=== PATIENT | female | born 1945 | race African-American/Black ===

== ENCOUNTER 2018-02-04 00:18 | Inpatient (IN) | payer BC, OTHER ==
[~2018-02-04] VITALS: Ht 165.1 cm; Wt 54.4 kg
[2018-02-04 00:25] VITALS: BP 152/90
[2018-02-04] MEDS ORDERED: LATANOPROST 0.7.5 ML OP (00:36)
[2018-02-04] MEDS ORDERED: ADALAT CC30 MG ORAL (00:36)
[2018-02-04] MEDS ORDERED: TRUSOPT10 ML BOTH EYES (00:36)
[2018-02-04] MEDS ORDERED: ATORVASTATIN CA20 MG ORAL (00:36)
[2018-02-04] MEDS ORDERED: Sodium Chloride 500ML 500 ML IV ONE (00:41)
[2018-02-04] MEDS ORDERED: Albuterol ud Inhalation HHN ONE (00:45)
[2018-02-04] MEDS ORDERED: Ipratropium 0.02% Inh Soln 2.5ml UD HHN ONE (00:45)
--- NOTE | 2018-02-04 00:47 | Emergency Room Report ---
History of Present Illness General Chief Complaint: Dyspnea/Respdistress Source: Patient Present Illness HPI Patient present with complaints of shortness of breath and congestion She reports that about one month ago she was seen at another facility Workup at that facility did not reveal any findings she was given an albuterol inhaler Patient reports that she does not have any previous history of asthma or lung disease Denies any smoking Currently denies any chest pain She feels that laying flat is worsening her respiration Denies any swelling Also describes some exertional dyspnea Allergies: Coded Allergies: SHELLFISH DERIVED (Verified Allergy, Unknown, 02/04/18) Patient History Past Medical History: see triage record Pertinent Family History: none Last Menstrual Period: n/a Reviewed Nursing Documentation: PMH: Agreed; PSxH: Agreed Nursing Documentation-PMH Hx Hypertension: Yes Review of Systems All Other Systems: negative except mentioned in HPI Physical Exam Vital Signs Date Time Temp Pulse Resp B/P (MAP) Pulse Ox O2 Delivery O2 Flow Rate FiO2 02/04/18 00:23 97.5 88 22 150/94 89 Room Air Sp02 EP Interpretation: reviewed, abnormal - Low percentage, on 2 L nasal cannula pt is 95% which is normal General Appearance: well appearing, no apparent distress Head: normocephalic, atraumatic Eyes: bilateral eye PERRL, bilateral eye EOMI ENT: hearing grossly normal, normal pharynx, TMs + canals normal, uvula midline Neck: full range of motion, supple, no meningismus, no bony tend Respiratory: no respiratory distress, no retraction, no accessory muscle use, wheezing - Bilaterally Cardiovascular #1: normal peripheral pulses, regular rate, rhythm, no edema, no gallop, no JVD, no murmur Gastrointestinal: normal bowel sounds, non tender, soft, no mass, no organomegaly, non-distended, no guarding, no hernia, no pulsatile mass, no rebound Genitourinary: no CVA tenderness Musculoskeletal: normal inspection Neurologic: oriented x3, responsive, 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 III-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 nml as tested, motor strength/ tone normal, sensory intact Psychiatric: mood/affect normal Skin: normal color, no rash, warm/dry, palpation normal Lymphatic: normal inspection, no adenopathy Medical Decision Making Diagnostic Impression: Primary Impression: Dyspnea ER Course Patient is a fairly complex patient with multiple differential to consideration including but not limited to cardiac cardiopulmonary and vascular emergencies Patient required initial breathing treatment and oxygenation Presented initially hypoxic X-ray shows some increased markings in the right side of the lung Given the patient's history and comorbidities patient was provided with antibiotics and admitted for further care Labs Test 02/04/18 01:00 02/04/18 09:00 White Blood Count 6.9 K/UL (4.8-10.8) Red Blood Count 4.75 M/UL (4.20-5.40) Hemoglobin 14.2 G/DL (12.0-16.0) Hematocrit 41.6 % (37.0-47.0) Mean Corpuscular Volume 88 FL (80-99) Mean Corpuscular Hemoglobin 29.9 PG (27.0-31.0) Mean Corpuscular Hemoglobin Concent 34.1 G/DL (32.0-36.0) Red Cell Distribution Width 11.4 % (11.6-14.8) Platelet Count 198 K/UL (150-450) Mean Platelet Volume 8.0 FL (6.5-10.1) Neutrophils (%) (Auto) 68.9 % (45.0-75.0) Lymphocytes (%) (Auto) 18.1 % (20.0-45.0) Monocytes (%) (Auto) 6.8 % (1.0-10.0) Eosinophils (%) (Auto) 4.9 % (0.0-3.0) Basophils (%) (Auto) 1.2 % (0.0-2.0) Sodium Level 137 MMOL/L (136-145) Potassium Level 4.4 MMOL/L (3.5-5.1) Chloride Level 102 MMOL/L (98-107) Carbon Dioxide Level 25 MMOL/L (21-32) Anion Gap 10 mmol/L (5-15) Blood Urea Nitrogen 19 mg/dL (7-18) Creatinine 0.9 MG/DL (0.55-1.30) Estimat Glomerular Filtration Rate mL/min (>60) Glucose Level 95 MG/DL (74-106) Calcium Level 9.4 MG/DL (8.5-10.1) Total Bilirubin 0.4 MG/DL (0.2-1.0) Aspartate Amino Transf (AST/SGOT) 32 U/L (15-37) Alanine Aminotransferase (ALT/SGPT) 19 U/L (12-78) Alkaline Phosphatase 94 U/L (46-116) Total Creatine Kinase 244 U/L (26-308) Creatine Kinase MB 1.7 NG/ML (0.0-3.6) Creatine Kinase MB Relative Index 0.6 Troponin I 0.000 ng/mL (0.000-0.056) 0.000 ng/mL (0.000-0.056) Pro-B-Type Natriuretic Peptide 38 pg/mL (0-125) 67 pg/mL (0-125) Total Protein 9.3 G/DL (6.4-8.2) Albumin 4.1 G/DL (3.4-5.0) Globulin 5.2 g/dL Albumin/Globulin Ratio 0.8 (1.0-2.7) Lipase 177 U/L (73-393) Hemoglobin A1c 5.9 % (4.3-6.0) Triglycerides Level 16 MG/DL (30-150) Cholesterol Level 141 MG/DL (< 200) LDL Cholesterol 43 mg/dL (<100) HDL Cholesterol 95 MG/DL (40-60) Cholesterol/HDL Ratio 1.5 (3.3-4.4) Rhythm Strip Diag. Results EP Interpretation: yes Rate: 78 Rhythm: NSR, no PVC's, no ectopy Chest X-Ray Diagnostic Results Chest X-Ray Diagnostic Results : Chest X-Ray Ordered: Yes # of Views/Limited/Complete: 1 View Indication: Shortness of Breath EP Interpretation: Yes Interpretation: no effusion, no pneumothorax, other - right lower lobe increased marking Impression: Other - right lower lobe increased marking, atelectasis versus other Last Vital Signs Date Time Temp Pulse Resp B/P (MAP) Pulse Ox O2 Delivery O2 Flow Rate FiO2 02/04/18 00:23 97.5 88 22 150/94 89 Room Air Status: improved Disposition: ADMITTED INPATIENT Condition: Serious BandarMarita kramer Feb 04, 2018 00:47
[2018-02-04 01:12] LABS: BASOPHILS % (AUTO) 1.2 % (0.0-2.0); EOSINOPHILS % (AUTO) 4.9 % (0.0-3.0); HEMATOCRIT 41.6 % (37.0-47.0); HEMOGLOBIN 14.2 G/DL (12.0-16.0); LYMPHOCYTES % (AUTO) 18.1 % (20.0-45.0); MEAN CORPUSCULAR VOLUME 88 FL (80-99); MONOCYTES % (AUTO) 6.8 % (1.0-10.0); NEUTROPHILS % (AUTO) 68.9 % (45.0-75.0); PLATELET COUNT 198 K/UL (150-450); RED BLOOD COUNT 4.75 M/UL (4.20-5.40); RED CELL DISTRIBUTION WIDTH 11.4 % (11.6-14.8); WHITE BLOOD COUNT 6.9 K/UL (4.8-10.8)
[2018-02-04 01:25] LABS: ANION GAP 10 mmol/L (5-15); BLOOD UREA NITROGEN 19 mg/dL (7-18); CALCIUM 9.4 MG/DL (8.5-10.1); CARBON DIOXIDE 25 MMOL/L (21-32); CHLORIDE 102 MMOL/L (98-107); CREATININE 0.9 MG/DL (0.55-1.30); POTASSIUM 4.4 MMOL/L (3.5-5.1); SODIUM 137 MMOL/L (136-145)
[2018-02-04 01:38] LABS: ALANINE AMINOTRANSFERASE 19 U/L (12-78); ALBUMIN 4.1 G/DL (3.4-5.0); ALBUMIN/GLOBULIN RATIO 0.8 (1.0-2.7); ALKALINE PHOSPHATASE 94 U/L (46-116); ASPARTATE AMINO TRANSFERASE 32 U/L (15-37); BILIRUBIN,TOTAL 0.4 MG/DL (0.2-1.0); CKMB 1.7 NG/ML (0.0-3.6); CREATINE KINASE 244 U/L (26-308)
[2018-02-04] MEDS ORDERED: DiphenhydrAMINE 25mg/10ml Elixir ORAL ONE (01:45)
[2018-02-04 03:00] VITALS: BP 121/72
[2018-02-04] MEDS ORDERED: Albuterol/Ipratropium 3ml neb HHN PRN (06:45)
[2018-02-04] MEDS: Albuterol/Ipratropium 3ml neb HHN SCH ×5 (07:51→23:00)
[2018-02-04 08:00] VITALS: BP 134/79
--- NOTE | 2018-02-04 08:30 | History & Physical ---
History and Physical History & Physicial seen and examined. Full Dictation completed Alis Levy MD Feb 04, 2018 08:30
[2018-02-04] MEDS ORDERED: Pneumococcal Vaccine 25mcg/0.5ml IM ONE (09:00)
[2018-02-04] MEDS: Dorzolamide 2% 10ml Btl BOTH EYES SCH ×2 (09:18→17:07)
[2018-02-04] MEDS: Enoxaparin 40mg Inj SUBQ SCH (09:19)
--- NOTE | 2018-02-04 09:38 | Diagnostic Imaging Report ---
Indication: Shortness of breath Technique: One view of the chest Comparison: 03/04/2009 Findings: Lungs and pleural spaces are clear. Heart size is normal. No significant interim change Impression: No acute process
[2018-02-04 09:48] LABS: CHOLESTEROL 141 MG/DL (< 200); HDL CHOLESTEROL 95 MG/DL (40-60); TRIGLYCERIDES 16 MG/DL (30-150)
--- NOTE | 2018-02-04 11:24 | Consultation ---
History of Present Illness General Date patient seen: Feb 04, 2018 Time patient seen: 11:16 Chief Complaint: Dyspnea/Respdistress Referring physician: Alis Levy MD Reason for Consultation: Respiratory illness Present Illness HPI 72 F H lifelong non-smoker h/o HL initially had a respiratory infection with cough, congestion, wheezing, sinus congestion. She was seen @ an OSH and given an inhaler. Her Sx's improved somewhat but then got worse over the course of the past few days. + cough + congestion + wheezing + SOB no F/C no CP no NVDC no urinary complaints. + OTC mucinex with some relief Works at [employer], has 2 grown children that live nearby Lives alone, no pets Allergies: Coded Allergies: SHELLFISH DERIVED (Verified Allergy, Unknown, 02/04/18) Medication History Scheduled Atorvastatin Calcium* (Atorvastatin Calcium*), 20 MG ORAL BEDTIME, (Reported) Dorzolamide Hcl* (Trusopt*), 1 DROP BOTH EYES TID, (Reported) Nifedipine Er* (Adalat Cc*), 30 MG ORAL DAILY, (Reported) Miscellaneous Medications Latanoprost/Pf (Latanoprost 0.005% Eye Drop), 7.5 ML OP, (Reported) Medications Narrative Active Scripts Medications Dose Route/Sig Max Daily Dose Days Date Category Dose Instructions Atorvastatin Calcium* (Atorvastatin Calcium) 20 Mg Tablet 20 Mg ORAL BEDTIME 02/04/18 Reported Adalat Cc* (Nifedipine) 30 Mg Tablet.er 30 Mg ORAL DAILY 02/04/18 Reported Do not chew or crush tablet Trusopt* (Dorzolamide HCl) 10 Ml Drops 1 Drop BOTH EYES TID 02/04/18 Reported Latanoprost 0.005% Eye Drop (Latanoprost/Pf) 7.5 Ml Drops 7.5 Ml OP 02/04/18 Reported Patient History History Provided By: Patient Healthcare decision maker Juan Antonio Edge (son) Resuscitation status Full Code Advanced Directive on File No Past Medical/Surgical History Past Medical/Surgical History: (1) Rectal prolapse (2) Hyperlipemia Review of Systems All Other Systems: negative except mentioned in HPI Physical Exam General Appearance: WD/WN, no apparent distress Lines, tubes and drains: peripheral HEENT: normocephalic, atraumatic, anicteric, mucous membranes moist, PERRL Neck: non-tender, normal alignment, supple, normal inspection Respiratory/Chest: chest wall non-tender, lungs clear, normal breath sounds, no respiratory distress, no accessory muscle use, respiratory distress Cardiovascular/Chest: normal peripheral pulses, normal rate, regular rhythm Abdomen: normal bowel sounds, non tender, soft, no organomegaly, no mass Extremities: other - no CCE Last 24 Hour Vital Signs Date Time Temp Pulse Resp B/P (MAP) Pulse Ox O2 Delivery O2 Flow Rate FiO2 02/04/18 09:18 80 134/79 02/04/18 09:00 Nasal Cannula 2.0 02/04/18 08:00 96 02/04/18 08:00 97.7 80 20 134/79 (97) 99 02/04/18 04:18 Nasal Cannula 2.0 02/04/18 04:00 68 02/04/18 03:00 97.1 77 19 121/72 (88) 94 02/04/18 02:55 97.8 83 18 142/89 100 Nasal Cannula 2.0 28 02/04/18 01:02 82 18 100 Nasal Cannula 2.0 28 02/04/18 00:47 83 14 96 Nasal Cannula 2.0 28 02/04/18 00:45 83 14 Nasal Cannula 2.0 28 02/04/18 00:25 97.8 85 22 152/90 88 Room Air 02/04/18 00:25 85 22 Simple Mask 4.0 02/04/18 00:23 97.5 88 22 150/94 89 Room Air Intake and Output 02/03/18 02/04/18 18:59 06:59 Intake Total 650 ml Balance 650 ml IV Total 650 ml Other 0 ml # Voids 2 Laboratory Tests Test 02/04/18 01:00 02/04/18 09:00 White Blood Count 6.9 K/UL (4.8-10.8) Red Blood Count 4.75 M/UL (4.20-5.40) Hemoglobin 14.2 G/DL (12.0-16.0) Hematocrit 41.6 % (37.0-47.0) Mean Corpuscular Volume 88 FL (80-99) Mean Corpuscular Hemoglobin 29.9 PG (27.0-31.0) Mean Corpuscular Hemoglobin Concent 34.1 G/DL (32.0-36.0) Red Cell Distribution Width 11.4 % (11.6-14.8) L Platelet Count 198 K/UL (150-450) Mean Platelet Volume 8.0 FL (6.5-10.1) Neutrophils (%) (Auto) 68.9 % (45.0-75.0) Lymphocytes (%) (Auto) 18.1 % (20.0-45.0) L Monocytes (%) (Auto) 6.8 % (1.0-10.0) Eosinophils (%) (Auto) 4.9 % (0.0-3.0) H Basophils (%) (Auto) 1.2 % (0.0-2.0) Sodium Level 137 MMOL/L (136-145) Potassium Level 4.4 MMOL/L (3.5-5.1) Chloride Level 102 MMOL/L (98-107) Carbon Dioxide Level 25 MMOL/L (21-32) Anion Gap 10 mmol/L (5-15) Blood Urea Nitrogen 19 mg/dL (7-18) H Creatinine 0.9 MG/DL (0.55-1.30) Estimat Glomerular Filtration Rate mL/min (>60) Glucose Level 95 MG/DL (74-106) Calcium Level 9.4 MG/DL (8.5-10.1) Total Bilirubin 0.4 MG/DL (0.2-1.0) Aspartate Amino Transf (AST/SGOT) 32 U/L (15-37) Alanine Aminotransferase (ALT/SGPT) 19 U/L (12-78) Alkaline Phosphatase 94 U/L (46-116) Total Creatine Kinase 244 U/L (26-308) Creatine Kinase MB 1.7 NG/ML (0.0-3.6) Creatine Kinase MB Relative Index 0.6 Troponin I 0.000 ng/mL (0.000-0.056) 0.000 ng/mL (0.000-0.056) Pro-B-Type Natriuretic Peptide 38 pg/mL (0-125) 67 pg/mL (0-125) Total Protein 9.3 G/DL (6.4-8.2) H Albumin 4.1 G/DL (3.4-5.0) Globulin 5.2 g/dL Albumin/Globulin Ratio 0.8 (1.0-2.7) L Lipase 177 U/L (73-393) Hemoglobin A1c 5.9 % (4.3-6.0) Triglycerides Level 16 MG/DL (30-150) L Cholesterol Level 141 MG/DL (< 200) LDL Cholesterol 43 mg/dL (<100) HDL Cholesterol 95 MG/DL (40-60) H Cholesterol/HDL Ratio 1.5 (3.3-4.4) L Microbiology Date/Time Source Procedure Growth Status 02/04/18 01:14 Nasal Nares Influenza Types A,B Antigen (MOE) - Final Complete Height (Feet): 5 Height (Inches): 5.00 Weight (Pounds): 120 Medications Current Medications Medications (Trade) Dose Ordered Sig/Pamela Route PRN Reason Start Time Stop Time Status Last Admin Dose Admin Acetaminophen (Tylenol) 650 mg Q6H PRN ORAL Mild Pain/Temp > 100.5 02/04/18 06:45 03/06/18 06:44 Albuterol/ Ipratropium (Albuterol/ Ipratropium) 3 ml Q3HRT PRN HHN Shortness of Breath 02/04/18 06:45 02/09/18 06:44 Albuterol/ Ipratropium (Albuterol/ Ipratropium) 3 ml Q4HRT HHN 02/04/18 07:00 02/09/18 06:59 02/04/18 07:51 Atorvastatin Calcium (Lipitor) 20 mg BEDTIME ORAL 02/04/18 21:00 03/06/18 20:59 Dorzolamide HCl (Trusopt) 1 drop BID BOTH EYES 02/04/18 09:00 03/06/18 08:59 02/04/18 09:18 Enoxaparin Sodium (Lovenox) 40 mg DAILY SUBQ 02/04/18 09:00 03/06/18 08:59 02/04/18 09:19 Latanoprost (Xalatan) 1 drop BEDTIME BOTH EYES 02/04/18 21:00 03/06/18 20:59 Levofloxacin 150 ml @ 100 mls/hr Q48H IVPB 02/06/18 01:00 02/13/18 00:59 Nifedipine (Procardia XL) 30 mg DAILY ORAL 02/04/18 09:00 03/06/18 08:59 02/04/18 09:18 Pantoprazole (Protonix) 40 mg DAILY ORAL 02/04/18 09:00 03/06/18 08:59 02/04/18 09:18 Assessment/Plan Problem List: (1) Non-smoker ICD Codes: Z78.9 - Other specified health status SNOMED: 1076460 (2) Post-viral reactive airway disease ICD Codes: J45.998 - Other asthma SNOMED: 131163301, 072112185412 (3) Sinusitis ICD Codes: J32.9 - Chronic sinusitis, unspecified SNOMED: 75538319 (4) Tracheobronchitis ICD Codes: J40 - Bronchitis, not specified as acute or chronic SNOMED: 46522818 Assessment/Plan Cough and congestion, URI/tracheobronchitis Prolonged post-viral course Reactive airway disease Sinusitis PLAN: Continue Levaquin (D2) F/U Cx's Mucinex PRN Robitussin RTC and PRN HHN's CT sinus and chest DVT Px: Juan Arreguin MD Feb 04, 2018 11:24
[2018-02-04 11:57] VITALS: BP 144/85
[2018-02-04 16:00] VITALS: BP 131/75
--- NOTE | 2018-02-04 16:14 | Diagnostic Imaging Report ---
Clinical Indication: Shortness of breath, respiratory infection, wheezing, sinus congestion Technique: Spiral acquisitions obtained through the chest. No IV contrast utilized, referring physician request. Multiplanar reconstructions generated. Total dose length product 397.25 mGycm. CTDIvol(s) 11.85 mGy. Dose reduction achieved using automated exposure control Comparison: No comparison CTs. Reference made to chest radiograph of earlier the same day Findings:Irregular opacity with central calcification measuring 8 mm diameter is seen in the posterior right upper lobe, image 22 series 5. A few subpleural opacities are seen in the posterior upper lobes bilaterally. Lungs are otherwise clear.. No infiltrates, effusions, congestion, or masses. Interval scarring and/or atelectasis is seen at both lung bases. The heart size is normal. No pericardial effusion. No mediastinal or hilar mass or adenopathy. Unremarkable esophagus. Normal caliber thoracic aorta and pulmonary arteries. The included portions of the thyroid are unremarkable. No axillary or chest wall mass or adenopathy. The bones are unremarkable. The included upper abdominal anatomy demonstrates multiple hepatic cysts. There are one or more subcentimeter low-attenuation hepatic lesions which are too small to characterize. A calcified granuloma is seen in the right hepatic lobe. Impression: Irregular 8 mm opacity with central calcification in the posterior right upper lobe. Most likely postinflammatory in nature. Recommend follow-up CT in 6-12 months No acute abnormality Minimal basilar scarring and/or atelectasis. Otherwise clear lungs Incidental finding of hepatic cysts. Subcentimeter low-attenuation liver lesions are too small to characterize, most likely benign simple cysts. No further follow-up necessary Old granulomatous disease within the right hepatic lobe The CT scanner at [facility] is accredited by the [employer] and the scans are performed using protocols designed to limit radiation exposure to as low as reasonably achievable to attain images of sufficient resolution adequate for diagnostic evaluation.
--- NOTE | 2018-02-04 16:22 | Diagnostic Imaging Report ---
Indications: Cough, congestion, wheezing, sinus congestion Technique: Spiral images obtained through the maxillofacial sinuses. No IV contrast utilized per protocol. Multiplanar reconstructions were generated.Total dose length product 535 mGycm. CTDIvol(s) 20 mGy. Dose reduction achieved using automated exposure control Comparison: none Findings: There is minimal circumferential mucosal thickening involving the bilateral maxillary sinuses. There is considerable mucosal thickening within the nasal fossa. The bilateral maxillary ostia may be occluded by nasal mucosal thickening. There is more extensive mucosal thickening and opacification of bilateral ethmoid air cells. There is minimal mucosal thickening involving the sphenoid sinuses. There is complete or near complete opacification of the right and central frontal sinuses. There is rightward nasal septal deviation, mild. The optic globes and orbits are unremarkable. The included intracranial structures are unremarkable. The deep facial soft tissues are unremarkable. There is evidence of multiple prior tooth extractions. The existing dentition appears intact. There are degenerative changes of the imaged portions of the cervical spine Impression: Sinonasal disease involving the ethmoid and frontal sinuses, and to a much lesser extent the sphenoid and maxillary sinuses. There is also considerable mucosal thickening within the nasal fossa Suspect occlusions of the bilateral maxillary ostia The CT scanner at [facility] is accredited by the [employer] and the scans are performed using protocols designed to limit radiation exposure to as low as reasonably achievable to attain images of sufficient resolution adequate for diagnostic evaluation.
--- NOTE | 2018-02-04 16:45 | History and Physical Report ---
DATE OF ADMISSION: 02/04/2018 SOURCE OF INFORMATION: Patient and EMR. HISTORY OF PRESENT ILLNESS: The patient is a pleasant 72-year-old female with the recent history of the colon and partial colectomy secondary to the prolapse about couple months ago, who presented with shortness of breath and productive cough for the last couple of days. At the time of evaluation, the patient denies any chest pain. Denies any swelling on the legs. No headaches. No abnormal bleeding reported. PAST MEDICAL HISTORY: Hypertension, otherwise unremarkable. PAST SURGICAL HISTORY: Partial colectomy secondary to the colon prolapse in 2018. MEDICATIONS: Current hospital medications including, but not limited to Levaquin, breathing treatments, and atorvastatin. ALLERGIES: Shellfish. SOCIAL HISTORY: The patient is . Has two children. Denies history of illicit drug abuse, smoking, or alcohol abuse. PHYSICAL EXAMINATION: VITAL SIGNS: Blood pressure 150/90, temperature 98.2, pulse ox 98 percent on room air, pulse rate 98% on 4 liters of oxygen, and respiratory rate 14. HEAD AND NECK: Atraumatic and normocephalic. CHEST: Diffuse bronchial breathing sounds. Positive for crackles. HEART: S1, S2. Regular rate and rhythm. No S3. No S4. ABDOMEN: Soft. Positive for the scars of prior surgery. Well-healed. NEUROLOGY: The patient is awake, alert, and oriented x3. MUSCULOSKELETAL: No gross focal motor or lateralized deficit. LABORATORY DATA: Labs dated 02/04/2018 shows WBC 6.9, hemoglobin 14.2, and platelet count of 198,000. Sodium 137, potassium 4.4, BUN of 19, and creatinine of 0.9. Chest x-ray, official report is pending. ASSESSMENT AND PLAN: 1. Hypoxemic respiratory distress. 2. Community-acquired pneumonia. 3. Hypertension. 4. History of colon prolapse status post surgery. 5. Gastrointestinal and deep vein thrombosis prophylaxis. PLAN OF CARE: I will continue with the IV antibiotic. Resume the blood pressure medications. We will consult Cardiology, Dr. Del Valle and Pulmonary, Dr. Arreguin, and Infectious Disease, Dr. Cantrell. COMMENTS: The time of this dictation doesn't reflect actual time of the encounter Alis Levy M.D. DR: [place] JOB#: [id number] CC: JALYN
[2018-02-04] MEDS: guaiFENesin ER 600mg tab ORAL SCH (17:07)
[2018-02-04] MEDS: Flonase Nasal Inhaler 16gm NASAL SCH (18:53)
[2018-02-04 20:00] VITALS: BP 143/78
[2018-02-04] MEDS: Latanoprost 0.005% Opth 2.5ml Soln BOTH EYES SCH (21:51)
[2018-02-05] VITALS: BP 115/76
[2018-02-05] MEDS: Albuterol/Ipratropium 3ml neb HHN SCH ×4 (03:49→15:21)
[2018-02-05 03:58] VITALS: BP 136/79
[2018-02-05 05:49] LABS: HEMATOCRIT 34.7 % (37.0-47.0); HEMOGLOBIN 11.7 G/DL (12.0-16.0); MEAN CORPUSCULAR VOLUME 89 FL (80-99); PLATELET COUNT 167 K/UL (150-450); RED BLOOD COUNT 3.92 M/UL (4.20-5.40); RED CELL DISTRIBUTION WIDTH 11.4 % (11.6-14.8); WHITE BLOOD COUNT 3.4 K/UL (4.8-10.8)
[2018-02-05 06:11] LABS: ALANINE AMINOTRANSFERASE 17 U/L (12-78); ALBUMIN 3.4 G/DL (3.4-5.0); ALBUMIN/GLOBULIN RATIO 0.9 (1.0-2.7); ALKALINE PHOSPHATASE 76 U/L (46-116); ANION GAP 8 mmol/L (5-15); ASPARTATE AMINO TRANSFERASE 20 U/L (15-37); BILIRUBIN,TOTAL 0.4 MG/DL (0.2-1.0); BLOOD UREA NITROGEN 18 mg/dL (7-18); CALCIUM 8.9 MG/DL (8.5-10.1); CARBON DIOXIDE 27 MMOL/L (21-32); CHLORIDE 105 MMOL/L (98-107); CREATININE 1.2 MG/DL (0.55-1.30); POTASSIUM 3.7 MMOL/L (3.5-5.1); SODIUM 140 MMOL/L (136-145)
[2018-02-05 08:00] VITALS: BP 144/81
[2018-02-05] MEDS: Flonase Nasal Inhaler 16gm NASAL SCH (09:30)
[2018-02-05] MEDS: Latanoprost 0.005% Opth 2.5ml Soln BOTH EYES SCH (09:30)
[2018-02-05] MEDS: Enoxaparin 40mg Inj SUBQ SCH (09:31)
[2018-02-05] MEDS: guaiFENesin ER 600mg tab ORAL SCH (09:32)
[2018-02-05] MEDS: Dorzolamide 2% 10ml Btl BOTH EYES SCH (09:33)
--- NOTE | 2018-02-05 11:20 | General Progress Note ---
Assessment/Plan Assessment/Plan S:I have little sob O: appears comfortable, complains of exertional sob PHYSICAL EXAMINATION: HEAD AND NECK: Atraumatic and normocephalic. CHEST: Diffuse bronchial breathing sounds. Positive for crackles. HEART: S1, S2. Regular rate and rhythm. No S3. No S4. ABDOMEN: Soft. Positive for the scars of prior surgery. Well-healed. NEUROLOGY: The patient is awake, alert, and oriented x3. MUSCULOSKELETAL: No gross focal motor or lateralized deficit. LABORATORY DATA: Labs dated 02/05/2018 reviewed Chest x-ray, on 02/05/18 reviewd ASSESSMENT AND PLAN: 1. Hypoxemic respiratory distress. 2. Acute bronchitis 3. Hypertension. 4. History of colon prolapse status post surgery. 5. Gastrointestinal and deep vein thrombosis prophylaxis. PLAN OF CARE: I will continue empirical antibiotic regiment. optimize breathing meds Subjective Allergies: Coded Allergies: SHELLFISH DERIVED (Verified Allergy, Unknown, 02/04/18) Objective Last 24 Hour Vital Signs Date Time Temp Pulse Resp B/P (MAP) Pulse Ox O2 Delivery O2 Flow Rate FiO2 02/05/18 11:13 84 18 99 Room Air 21 02/05/18 11:04 82 18 98 Room Air 21 02/05/18 09:32 81 144/81 02/05/18 08:02 81 18 99 Room Air 02/05/18 08:00 97.5 87 18 144/81 (102) 98 02/05/18 08:00 Nasal Cannula 2.0 02/05/18 07:54 80 18 97 Room Air 02/05/18 07:41 101 02/05/18 04:00 74 02/05/18 03:59 74 18 98 Room Air 21 02/05/18 03:58 98.0 73 19 136/79 (98) 96 02/05/18 03:51 78 18 96 Room Air 21 02/05/18 00:13 80 18 98 Room Air 21 02/05/18 00:00 76 02/05/18 00:00 97.9 80 18 115/76 (89) 98 02/05/18 00:00 86 20 95 Room Air 21 02/04/18 21:00 Nasal Cannula 2.0 02/04/18 20:19 70 18 98 Room Air 2.0 21 02/04/18 20:09 68 20 98 Room Air 21 02/04/18 20:00 71 02/04/18 20:00 97.5 69 18 143/78 (99) 99 02/04/18 16:00 97.5 75 20 131/75 (93) 98 02/04/18 15:53 85 02/04/18 15:53 76 02/04/18 15:31 83 18 99 Nasal Cannula 2.0 28 02/04/18 15:21 75 14 97 Nasal Cannula 2.0 28 02/04/18 11:57 97.2 71 19 144/85 (104) 99 02/04/18 11:51 78 18 98 Nasal Cannula 2.0 28 02/04/18 11:44 81 14 97 Nasal Cannula 2.0 28 02/04/18 11:36 67 Intake and Output 02/04/18 02/05/18 18:59 06:59 Intake Total 860 ml 250 ml Balance 860 ml 250 ml Intake Oral 860 ml 250 ml # Voids 5 # Bowel Movements 1 Laboratory Tests 02/05/18 04:50: White Blood Count 3.4#L, Red Blood Count 3.92L, Hemoglobin 11.7L, Hematocrit 34.7L, Mean Corpuscular Volume 89, Mean Corpuscular Hemoglobin 29.9, Mean Corpuscular Hemoglobin Concent 33.8, Red Cell Distribution Width 11.4L, Platelet Count 167, Mean Platelet Volume 8.1, Neutrophils (%) (Auto) , Lymphocytes (%) (Auto) , Monocytes (%) (Auto) , Eosinophils (%) (Auto) , Basophils (%) (Auto) , Differential Total Cells Counted 100, Neutrophils % ( Manual) 42L, Lymphocytes % (Manual) 43, Monocytes % (Manual) 6, Eosinophils % ( Manual) 9H, Basophils % (Manual) 0, Band Neutrophils 0, Platelet Estimate Adequate, Platelet Morphology Normal, Red Blood Cell Morphology Normal, Sodium Level 140, Potassium Level 3.7, Chloride Level 105, Carbon Dioxide Level 27, Anion Gap 8, Blood Urea Nitrogen 18, Creatinine 1.2, Estimat Glomerular Filtration Rate , Glucose Level 91, Calcium Level 8.9, Total Bilirubin 0.4, Aspartate Amino Transf (AST/SGOT) 20, Alanine Aminotransferase (ALT/SGPT) 17, Alkaline Phosphatase 76, Total Protein 7.4, Albumin 3.4, Globulin 4.0, Albumin/ Globulin Ratio 0.9L Height (Feet): 5 Height (Inches): 5.00 Weight (Pounds): 120 Alis Levy MD Feb 05, 2018 11:20
[2018-02-05 12:00] VITALS: BP 134/73
--- NOTE | 2018-02-05 15:27 | Pulmonology Progress Note ---
Assessment/Plan Problems: (1) Non-smoker (2) Post-viral reactive airway disease (3) Sinusitis (4) Tracheobronchitis (5) Lung nodule, solitary Assessment & Plan: RUL partially Ca++ nodule seen on 02/04/18 CT CHEST (6) Hepatic cyst Assessment/Plan Cough and congestion, URI/tracheobronchitis RUL partially Ca++ nodule - first seen 02/04/2018 BiB Atx Prolonged post-viral course Reactive airway disease Sinusitis Incidental finding of hepatic cysts seen on CT chest PLAN: Continue Levaquin (/) F/U Cx's Mucinex PRN Robitussin HHN's Repeat CT chest 6 months (07/2018) DVT Px: Hep SQ Stable for D/C from a pulmonary standpoint, can F/U with me in 2-3 weeks of earlier PRN Subjective Allergies: Coded Allergies: SHELLFISH DERIVED (Verified Allergy, Unknown, 02/04/18) Subjective AFVSS, stable on RA Imaging reviewed No F/C/CP Dec rhin/francisca Dec cough, no SOB, no wheezing Objective Last 24 Hour Vital Signs Date Time Temp Pulse Resp B/P (MAP) Pulse Ox O2 Delivery O2 Flow Rate FiO2 02/05/18 15:22 84 18 98 Room Air 21 02/05/18 12:00 97.2 92 18 134/73 (93) 97 02/05/18 11:13 84 18 99 Room Air 21 02/05/18 11:04 82 18 98 Room Air 21 02/05/18 09:32 81 144/81 02/05/18 08:02 81 18 99 Room Air 21 02/05/18 08:00 97.5 87 18 144/81 (102) 98 02/05/18 08:00 Nasal Cannula 2.0 02/05/18 07:54 80 18 97 Room Air 21 02/05/18 07:41 101 02/05/18 04:00 74 02/05/18 03:59 74 18 98 Room Air 21 02/05/18 03:58 98.0 73 19 136/79 (98) 96 02/05/18 03:51 78 18 96 Room Air 21 02/05/18 00:13 80 18 98 Room Air 21 02/05/18 00:00 76 02/05/18 00:00 97.9 80 18 115/76 (89) 98 02/05/18 00:00 86 20 95 Room Air 21 02/04/18 21:00 Nasal Cannula 2.0 02/04/18 20:19 70 18 98 Room Air 2.0 21 02/04/18 20:09 68 20 98 Room Air 21 02/04/18 20:00 71 02/04/18 20:00 97.5 69 18 143/78 (99) 99 02/04/18 16:00 97.5 75 20 131/75 (93) 98 02/04/18 15:53 85 02/04/18 15:53 76 02/04/18 15:31 83 18 99 Nasal Cannula 2.0 28 Intake and Output 02/04/18 02/05/18 19:00 07:00 Intake Total 860 ml 250 ml Balance 860 ml 250 ml Intake Oral 860 ml 250 ml # Voids 5 # Bowel Movements 1 General Appearance: WD/WN, no acute distress HEENT: normocephalic, atraumatic, anicteric, mucous membranes moist, PERRL Respiratory/Chest: chest wall non-tender, lungs clear, normal breath sounds, no respiratory distress, no accessory muscle use Cardiovascular: normal peripheral pulses, normal rate, regular rhythm Abdomen: normal bowel sounds, soft, non tender, non distended, no mass Extremities: no cyanosis, no clubbing, no edema Microbiology Date/Time Source Procedure Growth Status 02/04/18 01:05 Blood Blood Culture - Preliminary NO GROWTH AFTER 24 HOURS Resulted 02/04/18 00:50 Blood Blood Culture - Preliminary NO GROWTH AFTER 24 HOURS Resulted 02/04/18 01:14 Nasal Nares Influenza Types A,B Antigen (MOE) - Final Complete Laboratory Tests 02/05/18 04:45: HIV (1&2) Antibody Rapid Negative 02/05/18 04:50: White Blood Count 3.4#L, Red Blood Count 3.92L, Hemoglobin 11.7L, Hematocrit 34.7L, Mean Corpuscular Volume 89, Mean Corpuscular Hemoglobin 29.9, Mean Corpuscular Hemoglobin Concent 33.8, Red Cell Distribution Width 11.4L, Platelet Count 167, Mean Platelet Volume 8.1, Neutrophils (%) (Auto) , Lymphocytes (%) (Auto) , Monocytes (%) (Auto) , Eosinophils (%) (Auto) , Basophils (%) (Auto) , Differential Total Cells Counted 100, Neutrophils % ( Manual) 42L, Lymphocytes % (Manual) 43, Monocytes % (Manual) 6, Eosinophils % ( Manual) 9H, Basophils % (Manual) 0, Band Neutrophils 0, Platelet Estimate Adequate, Platelet Morphology Normal, Red Blood Cell Morphology Normal, Sodium Level 140, Potassium Level 3.7, Chloride Level 105, Carbon Dioxide Level 27, Anion Gap 8, Blood Urea Nitrogen 18, Creatinine 1.2, Estimat Glomerular Filtration Rate , Glucose Level 91, Calcium Level 8.9, Total Bilirubin 0.4, Aspartate Amino Transf (AST/SGOT) 20, Alanine Aminotransferase (ALT/SGPT) 17, Alkaline Phosphatase 76, Total Protein 7.4, Albumin 3.4, Globulin 4.0, Albumin/ Globulin Ratio 0.9L Current Medications Medications (Trade) Dose Ordered Sig/Pamela Route PRN Reason Start Time Stop Time Status Last Admin Dose Admin Acetaminophen (Tylenol) 650 mg Q6H PRN ORAL Mild Pain/Temp > 100.5 02/04/18 06:45 03/06/18 06:44 Albuterol/ Ipratropium (Albuterol/ Ipratropium) 3 ml Q3HRT PRN HHN Shortness of Breath 02/04/18 06:45 02/09/18 06:44 Albuterol/ Ipratropium (Albuterol/ Ipratropium) 3 ml Q4HRT HHN 02/04/18 07:00 02/09/18 06:59 02/05/18 15:21 Atorvastatin Calcium (Lipitor) 20 mg BEDTIME ORAL 02/04/18 21:00 03/06/18 20:59 02/04/18 21:51 Dorzolamide HCl (Trusopt) 1 drop BID BOTH EYES 02/04/18 09:00 03/06/18 08:59 02/05/18 09:33 Enoxaparin Sodium (Lovenox) 40 mg DAILY SUBQ 02/04/18 09:00 03/06/18 08:59 02/05/18 09:31 Fluticasone Propionate (Flonase) 1 spray TWICE A DAY NASAL 02/04/18 18:30 03/06/18 18:29 02/05/18 09:30 Guaifenesin (Mucinex ER) 600 mg TWICE A DAY ORAL 02/04/18 18:00 03/06/18 17:59 02/05/18 09:32 Latanoprost (Xalatan) 1 drop BEDTIME BOTH EYES 02/04/18 21:00 03/06/18 20:59 02/05/18 09:30 Levofloxacin 150 ml @ 100 mls/hr Q48H IVPB 02/06/18 01:00 02/13/18 00:59 Nifedipine (Procardia XL) 30 mg DAILY ORAL 02/04/18 09:00 03/06/18 08:59 02/05/18 09:32 Pantoprazole (Protonix) 40 mg DAILY ORAL 02/04/18 09:00 03/06/18 08:59 02/05/18 09:32 Juan Arreguin MD Feb 05, 2018 15:27
[2018-02-05 16:00] VITALS: BP 124/70
--- NOTE | 2018-02-05 16:34 | Infectious Diseases Prog Note ---
Assessment/Plan Problems: (1) Right upper lobe pulmonary nodule Assessment & Plan: calcified on CT scan , suspect due to an old infectious process , recommend repeat CT scan in the future for follow up , FOLLOW UP WITH PULMONARY (2) Sinusitis Assessment & Plan: with complete opacification of the maxillary sinuses , continue levaquin for 10 days , follow up with ENT (3) Dyspnea Assessment & Plan: due to the above improving , continue inhalers (4) Tracheobronchitis Assessment & Plan: on levaquin , continue inhalers as needed Subjective Constitutional: Reports: no symptoms HEENT: Reports: congestion Respiratory: Reports: shortness of breath, dry cough Breasts: Reports: no symptoms Cardiovascular: Reports: no symptoms Gastrointestinal/Abdominal: Reports: no symptoms Genitourinary: Reports: no symptoms Neurologic: Reports: no symptoms Psychiatric: Reports: no symptoms Skin: Reports: no symptoms Endocrine: Reports: no symptoms Hematologic: Reports: no symptoms Musculoskeletal: Reports: no symptoms Allergies: Coded Allergies: SHELLFISH DERIVED (Verified Allergy, Unknown, 02/04/18) Objective Vital Signs Last 24 Hour Vital Signs Date Time Temp Pulse Resp B/P (MAP) Pulse Ox O2 Delivery O2 Flow Rate FiO2 02/05/18 15:30 81 20 99 Room Air 21 02/05/18 15:22 84 18 98 Room Air 21 02/05/18 12:00 97.2 92 18 134/73 (93) 97 02/05/18 11:13 84 18 99 Room Air 21 02/05/18 11:04 82 18 98 Room Air 21 02/05/18 09:32 81 144/81 02/05/18 08:02 81 18 99 Room Air 21 02/05/18 08:00 97.5 87 18 144/81 (102) 98 02/05/18 08:00 Nasal Cannula 2.0 02/05/18 07:54 80 18 97 Room Air 21 02/05/18 07:41 101 02/05/18 04:00 74 02/05/18 03:59 74 18 98 Room Air 21 02/05/18 03:58 98.0 73 19 136/79 (98) 96 02/05/18 03:51 78 18 96 Room Air 21 02/05/18 00:13 80 18 98 Room Air 21 02/05/18 00:00 76 02/05/18 00:00 97.9 80 18 115/76 (89) 98 02/05/18 00:00 86 20 95 Room Air 21 02/04/18 21:00 Nasal Cannula 2.0 02/04/18 20:19 70 18 98 Room Air 2.0 21 02/04/18 20:09 68 20 98 Room Air 21 02/04/18 20:00 71 02/04/18 20:00 97.5 69 18 143/78 (99) 99 Height (Feet): 5 Height (Inches): 5.00 Weight (Pounds): 120 General Appearance: WD/WN, no acute distress HEENT: normocephalic, atraumatic, anicteric, mucous membranes moist, PERRL Respiratory/Chest: chest wall non-tender, lungs clear, normal breath sounds, no respiratory distress, no accessory muscle use Cardiovascular: normal peripheral pulses, normal rate, regular rhythm, no gallop/murmur, no JVD Abdomen: normal bowel sounds, soft, non tender, no organomegaly, non distended , no mass, no scars Extremities: no cyanosis, no clubbing Skin: no rash, no lesions, no ulcers Neurologic/Psychiatric: no motor/sensory deficits, abnormal gait, alert, oriented x 3 Lymphatic: no neck adenopathy, no groin adenopathy Musculoskeletal: normal muscle bulk, no effusion Microbiology Date/Time Source Procedure Growth Status 02/04/18 01:05 Blood Blood Culture - Preliminary NO GROWTH AFTER 24 HOURS Resulted 02/04/18 00:50 Blood Blood Culture - Preliminary NO GROWTH AFTER 24 HOURS Resulted 02/04/18 01:14 Nasal Nares Influenza Types A,B Antigen (MOE) - Final Complete Laboratory Tests Test 02/05/18 04:45 02/05/18 04:50 HIV (1&2) Antibody Rapid Negative (NEGATIVE) White Blood Count 3.4 K/UL (4.8-10.8) #L Red Blood Count 3.92 M/UL (4.20-5.40) L Hemoglobin 11.7 G/DL (12.0-16.0) L Hematocrit 34.7 % (37.0-47.0) L Mean Corpuscular Volume 89 FL (80-99) Mean Corpuscular Hemoglobin 29.9 PG (27.0-31.0) Mean Corpuscular Hemoglobin Concent 33.8 G/DL (32.0-36.0) Red Cell Distribution Width 11.4 % (11.6-14.8) L Platelet Count 167 K/UL (150-450) Mean Platelet Volume 8.1 FL (6.5-10.1) Neutrophils (%) (Auto) % (45.0-75.0) Lymphocytes (%) (Auto) % (20.0-45.0) Monocytes (%) (Auto) % (1.0-10.0) Eosinophils (%) (Auto) % (0.0-3.0) Basophils (%) (Auto) % (0.0-2.0) Differential Total Cells Counted 100 Neutrophils % (Manual) 42 % (45-75) L Lymphocytes % (Manual) 43 % (20-45) Monocytes % (Manual) 6 % (1-10) Eosinophils % (Manual) 9 % (0-3) H Basophils % (Manual) 0 % (0-2) Band Neutrophils 0 % (0-8) Platelet Estimate Adequate Platelet Morphology Normal Red Blood Cell Morphology Normal Sodium Level 140 MMOL/L (136-145) Potassium Level 3.7 MMOL/L (3.5-5.1) Chloride Level 105 MMOL/L (98-107) Carbon Dioxide Level 27 MMOL/L (21-32) Anion Gap 8 mmol/L (5-15) Blood Urea Nitrogen 18 mg/dL (7-18) Creatinine 1.2 MG/DL (0.55-1.30) Estimat Glomerular Filtration Rate mL/min (>60) Glucose Level 91 MG/DL (74-106) Calcium Level 8.9 MG/DL (8.5-10.1) Total Bilirubin 0.4 MG/DL (0.2-1.0) Aspartate Amino Transf (AST/SGOT) 20 U/L (15-37) Alanine Aminotransferase (ALT/SGPT) 17 U/L (12-78) Alkaline Phosphatase 76 U/L (46-116) Total Protein 7.4 G/DL (6.4-8.2) Albumin 3.4 G/DL (3.4-5.0) Globulin 4.0 g/dL Albumin/Globulin Ratio 0.9 (1.0-2.7) L Current Medications Medications (Trade) Dose Ordered Sig/Pamela Route PRN Reason Start Time Stop Time Status Last Admin Dose Admin Acetaminophen (Tylenol) 650 mg Q6H PRN ORAL Mild Pain/Temp > 100.5 02/04/18 06:45 03/06/18 06:44 Albuterol/ Ipratropium (Albuterol/ Ipratropium) 3 ml Q3HRT PRN HHN Shortness of Breath 02/04/18 06:45 02/09/18 06:44 Albuterol/ Ipratropium (Albuterol/ Ipratropium) 3 ml Q4HRT HHN 02/04/18 07:00 02/09/18 06:59 02/05/18 15:21 Atorvastatin Calcium (Lipitor) 20 mg BEDTIME ORAL 02/04/18 21:00 03/06/18 20:59 02/04/18 21:51 Dorzolamide HCl (Trusopt) 1 drop BID BOTH EYES 02/04/18 09:00 03/06/18 08:59 02/05/18 09:33 Enoxaparin Sodium (Lovenox) 40 mg DAILY SUBQ 02/04/18 09:00 03/06/18 08:59 02/05/18 09:31 Fluticasone Propionate (Flonase) 1 spray TWICE A DAY NASAL 02/04/18 18:30 03/06/18 18:29 02/05/18 09:30 Guaifenesin (Mucinex ER) 600 mg TWICE A DAY ORAL 02/04/18 18:00 03/06/18 17:59 02/05/18 09:32 Latanoprost (Xalatan) 1 drop BEDTIME BOTH EYES 02/04/18 21:00 03/06/18 20:59 02/05/18 09:30 Levofloxacin 150 ml @ 100 mls/hr Q48H IVPB 02/06/18 01:00 02/13/18 00:59 Nifedipine (Procardia XL) 30 mg DAILY ORAL 02/04/18 09:00 03/06/18 08:59 02/05/18 09:32 Pantoprazole (Protonix) 40 mg DAILY ORAL 02/04/18 09:00 03/06/18 08:59 02/05/18 09:32 Janie Cantrell M.D. Feb 05, 2018 16:34
[2018-02-05] MEDS ORDERED: LEVAQUIN750 MG ORAL (17:07)
--- NOTE | 2018-02-05 19:30 | Consultation ---
DATE OF CONSULTATION: 02/04/2018 INFECTIOUS DISEASE CONSULTATION CONSULTING PHYSICIAN: Janie Cantrell M.D. REQUESTING PHYSICIAN: Alis Levy M.D. REASON FOR CONSULTATION: Right upper lobe lung nodule, rule out infectious etiology with bronchitis. Recommendation for antimicrobial treatment. HISTORY OF PRESENT ILLNESS: The patient is a 72-year-old female with past medical history of hypertension, presented to [facility] with progressive shortness of breath and chest congestion for a month almost. The patient was recently admitted to another facility where she had extensive workup. It did not reveal any finding and she was given inhaler with albuterol and discharged home. The patient denied any previous history of TB or TB exposure. No recent travel or sick contact. No family history of tuberculosis or any fungal disease. The patient also denied any smoking. The patient also described some exertional dyspnea and leg swelling. It is worse mainly when she lay flat. The patient with extensive workup in the emergency room including CT scan of the chest, which showed an 8 mm opacity with central calcification in the posterior right upper lobe with minimal basilar scarring or atelectases, but no acute infiltration. So, Infectious Disease consultation was requested for antibiotics treatment and further management. PAST MEDICAL HISTORY: Significant for hypertension and dyspnea. PAST SURGICAL HISTORY: Negative. MEDICATIONS: She is currently on levofloxacin. For the rest of her medications, please refer to MAR. ALLERGIES: She is allergic to shellfish derives. FAMILY HISTORY: Negative for recurrent infection or immunocompromised condition. REVIEW OF SYSTEMS: A 14-point of system reviewed were all negative apart from the one I mentioned above in my History and Physical. PHYSICAL EXAMINATION: VITAL SIGNS: Temperature is 97.5, pulse 75, respirations 20, blood pressure 131/75, and saturation 98% on room air. GENERAL: An elderly female, lying in bed, awake, alert, and not in acute distress. VITAL SIGNS: Stable. HEENT: Normocephalic and atraumatic. Pupils reactive to light equally. Moist oral mucosa. No exudate or thrush. NECK: Supple. No lymphadenopathy. CARDIOVASCULAR: Regular rate and rhythm. No murmur or gallop. LUNGS: Clear bilaterally. No wheezing or rhonchi. No respiratory distress. ABDOMEN: Soft, nontender, and nondistended. Normal bowel sounds. No hepatosplenomegaly or ascites. EXTREMITY: No edema or cyanosis. No clubbing. LABORATORY DATA: Labs showed white count of 6.9, hemoglobin of 14.2, and platelet count of 198,000. BUN of 19 and creatinine of 0.9. IMAGING: Chest x-ray on admission showed no acute process. Chest CT scan, no contrast, showed irregular 8 mm opacity with central calcification in the posterior right upper lobe, most likely postinflammatory in nature. No acute abnormalities, minimal basilar scarring or atelectasis, otherwise clear lungs. Maxillary facial CT scan of the sinuses showed sinonasal disease involving the ethmoid and frontal sinuses and to a much lesser extent the sphenoid and maxillary sinuses. ASSESSMENT AND RECOMMENDATION: 1. Right upper lobe pulmonary nodule calcified on CT scan suspect due to an old infectious process. Recommend repeated CT scan in couple of months for followup and follow-up with Pulmonary. 2. Sinusitis seems to be extensive with complete opacification from sinuses. Continue Levaquin for 10 days with anti-congestion. Recommend follow up with ENT in the near future. 3. Dyspnea due to the above, improving. Continue inhalers. 4. Tracheobronchitis, on Levaquin. Continue inhalers as needed. Follow up with Pulmonary. Thank you for the consult. ID will continue to follow. Please feel free to call with any question. Janie Cantrell M.D. DR: GABRIELLE JOB#: [id number] CC:
--- NOTE | 2018-02-08 09:14 | Discharge Summary ---
Discharge Summary Discharge Summary _ DATE OF ADMISSION: 02/04/2018 DATE OF DISCHARGE: 02/05/2018 REASON FOR ADMISSION: 72 years old female with past medical history of hypertension, presented to emergency department with shortness of breath and congestion. Patient was seen about a month ago in another facility for cough ,congestion , wheezing, sinus pressure. Workup at the facility did not reveal any findings m, as per patient, and she was provided with albuterol inhaler. Her symptoms somewhat improved, but got worse over the course of the past few days . Patient reported cough ,congestion, wheezing , shortness of breath. No fever, no chills, no chest pain,. No nausea ,vomiting, diarrhea or constipation. No urinary complaints . Patient reported taking [id number] Mucinex with some relief. Patient denied any history of asthma or lung disease. Patient denied smoking in the past Upon evaluation vital signs revealed no fever. Pulse oximetry was 89% on room air. Patient required supplemental oxygen . Blood pressure was 150/94. Laboratory workup revealed no leukocytosis ,stable hemoglobin and hematocrit. Chemistry revealed stable electrolytes and renal parameters. Stable LFT . Troponin negative, proBNP 38. ECG revealed normal sinus rhythm, no acute ischemic changes. Chest x-ray revealed no acute cardiopulmonary process. Patient was admitted for further management. CONSULTANTS: pulmonary Dr. Rodríguez ESTRADA specialist Dr. Cantrell [facility] COURSE: Patient admitted. Supplemental oxygen provided as needed to keep pulse oximetry above 92%. Pulmonary toilet provided around the clock and as needed with bronchodilator therapy. Parts Data Writer and infectious disease specialist closely followed. Patient started on empiric antibiotics. Blood culture were negative. Influenza screen test was negative. Patient started on Mucinex twice a day and Robitussin as needed. Patient started on Flonase nasal spray. DVT and GI prophylaxis provided. CT chest demonstrated irregular 8 mm opacity with central calcification in the posterior right upper lobe. Most likely postinflammatory in nature. Recommend follow-up CT in 6-12 months No acute abnormality Minimal basilar scarring and/or atelectasis. Otherwise clear lungs Incidental finding of hepatic cysts. Subcentimeter low-attenuation liver lesions are too small to characterize, most likely benign simple cysts. No further follow-up necessary CT of maxillofacial revealed sinonasal disease involving the ethmoid and frontal sinuses, and to a much lesser extent the sphenoid and maxillary sinuses. There was also considerable mucosal thickening within the nasal fossa. Suspected occlusions of the bilateral maxillary ostia. Home medications were continued. Blood pressure was closely monitored and managed with current regimen Pneumonia vaccine was given prior to discharge. With current treatment , patient clinically improved and was ready for discharge home. Patient to follow-up with selling specialist in 2-3 weeks or earlier as needed. Patient recommended to repeat CT of the chest in 6 months. Due to rapid and unexpected improvement in patient's condition patient was discharged in one day. FINAL DIAGNOSES: Tracheobronchitis Postviral reactive airway disease Sinusitis Hypoxemia with respiratory distress secondary to above diagnoses -resolved Nonsmoker Solitary lung nodule /right upper lobe Hepatic cyst -incidental finding History of rectal prolapse , status post surgery Hypertension DISCHARGE MEDICATIONS: See Medication Reconciliation list. DISCHARGE INSTRUCTIONS: Patient was discharged home Follow up with primary care provider in one week. Follow-up with a selling specialist in 2-3 weeks or earlier as needed. Repeat CT scan of the chest in 6 months I have been assigned to dictate discharge summary for this account. I was not involved in the patient's management. Sheree Nam NP Feb 08, 2018 09:14
== END 2018-02-05 17:58 | disposition home or self-care (01) | DRG 203 ==
LOC: EMR 00:42 → 2E 01:38 → EDBEDREQ 02:09
DX: J40 Bronchitis, not specified as acute or chronic (principal); J45.998 Other asthma; J32.9 Chronic sinusitis, unspecified; R09.02 Hypoxemia; R06.03 Acute respiratory distress; R91.1 Solitary pulmonary nodule; I10 Essential (primary) hypertension; Z91.013 Allergy to seafood; Z23 Encounter for immunization
CPT/HCPCS: 36415; 70486; 71045; 71250; 80053; 80061; 82550; 82553; 83036; 83690; 83880; 84484; 85007; 85025; 86703; 86710; 87040; 90732; 93005; 94640; 94664; 96365; 99285; J7620

== ENCOUNTER 2018-04-28 11:08 | Emergency (ER) | payer BC ==
[~2018-04-28] VITALS: Ht 165.1 cm; Wt 52.2 kg
[~2018-04-28 11:08] MED LIST: ADALAT CC30 MG ORAL; ATORVASTATIN CA20 MG ORAL; LATANOPROST 0.7.5 ML OP; LEVAQUIN750 MG ORAL; TRUSOPT10 ML BOTH EYES
--- NOTE | 2018-04-28 11:17 | NUR ---
ED Nurse Note: Pt came into ED from home c/o shortness of breath since this morning, patient reports hx of asthma
[2018-04-28] MEDS: Ipratropium 0.02% Inh Soln 2.5ml UD HHN SCH ×3 (11:30→11:58)
[2018-04-28] MEDS: Albuterol ud Inhalation HHN SCH ×3 (11:30→11:58)
[2018-04-28 11:32] VITALS: BP 148/73
[2018-04-28] MEDS ORDERED: LEVAQUIN750 MG ORAL (13:00)
[2018-04-28] MEDS ORDERED: PREDNISONE20 MG ORAL (13:00)
[2018-04-28] MEDS ORDERED: ALBUTEROL SULF8.5 GM INH (13:00)
--- NOTE | 2018-04-28 13:10 | NUR ---
ED Nurse Note: Patient cleared for discharge per ERMD. AO4. NAD. VSS. Patient given prescriptions and discharge instructions; verbalized understanding. ID removed. Patient ambulated steady out of ED with all belongings.
--- NOTE | 2018-04-28 14:10 | Emergency Room Report ---
History of Present Illness General Chief Complaint: Dyspnea/Respdistress Source: Patient Present Illness HPI 73-year-old female presents ED for evaluation. Patient complaining of shortness of breath 1 day. History of asthma. Complaining of cough and wheezing. Productive yellowish phlegm. Denies chest pain or shortness of breath. Denies sick contacts or recent travel. Denies fevers or chills. No other aggravating relieving factors. Denies any other associated symptoms Allergies: Coded Allergies: SHELLFISH DERIVED (Verified Allergy, Unknown, 02/04/18) Patient History Past Medical History: HTN, asthma Past Surgical History: none Pertinent Family History: none Social History: Denies: smoking, alcohol use, drug use Now: No Immunizations: UTD Reviewed Nursing Documentation: PMH: Agreed; PSxH: Agreed Nursing Documentation-PMH Past Medical History: No History, Except For Hx Hypertension: Yes Hx Asthma: Yes Review of Systems All Other Systems: negative except mentioned in HPI Physical Exam Vital Signs Date Time Temp Pulse Resp B/P (MAP) Pulse Ox O2 Delivery O2 Flow Rate FiO2 04/28/18 11:11 97.7 84 19 130/76 100 Non-Rebreather 10.0 04/28/18 11:30 100 Sp02 EP Interpretation: reviewed, normal General Appearance: no apparent distress, alert, GCS 15, non-toxic Head: normocephalic, atraumatic Eyes: bilateral eye normal inspection, bilateral eye PERRL ENT: hearing grossly normal, normal pharynx, no angioedema, normal voice Neck: full range of motion, supple/symm/no masses Respiratory: chest non-tender, normal breath sounds, speaking full sentences, wheezing Cardiovascular #1: regular rate, rhythm, no edema Cardiovascular #2: 2+ carotid (R), 2+ carotid (L), 2+ radial (R), 2+ radial (L) , 2+ dorsalis pedis (R), 2+ dorsalis pedis (L) Gastrointestinal: normal bowel sounds, non tender, soft, non-distended, no guarding, no rebound Rectal: deferred Genitourinary: normal inspection, no CVA tenderness Musculoskeletal: back normal, gait/station normal, normal range of motion, non- tender Neurologic: alert, oriented x3, responsive, motor strength/tone normal, sensory intact, speech normal Psychiatric: judgement/insight normal, memory normal, mood/affect normal, no suicidal/homicidal ideation Reflexes: 3+ bicep (R), 3+ bicep (L), 3+ tricep (R), 3+ tricep (L), 3+ knee (R) , 3+ knee (L) Skin: normal color, no rash, warm/dry, well hydrated Lymphatic: no adenopathy Medical Decision Making Diagnostic Impression: Primary Impression: Atypical pneumonia ER Course Hospital Course 73-year-old female presents to ED complaining of cough, wheezing Differential diagnoses include: URI, bronchitis, asthma/COPD, pneumonia Clinical course Patient placed on stretcher. After initial history and physical I ordered prednisone and nebulizer treatment. Upon reassessment patient states cough and symptoms have improved. Patient afebrile, nontoxic appearing. Given age comorbidities we'll treat is atypical pneumonia. We'll prescribe antibiotics. Safe for discharge with close outpatient follow-up. States she has a PMD Diagnosis - atypical pneumonia Stable and discharged home with prescriptions for Rx levaquin, prednisone, albuterol. Instructed to followup with PMD. Return to ED if symptoms recur or worsen Last Vital Signs Date Time Temp Pulse Resp B/P (MAP) Pulse Ox O2 Delivery O2 Flow Rate FiO2 04/28/18 13:09 97.7 75 17 149/83 100 Room Air 04/28/18 12:58 10.0 100 Status: improved Disposition: HOME, SELF-CARE Condition: Stable Scripts Albuterol Sulfate* (ALBUTEROL SULFATE MDI*) 8.5 Gm Hfa.aer.ad 2 PUFF INH Q6H, #1 EA 0 Refills Prov: Conner Seo MD 04/28/18 Prednisone* (PREDNISONE*) 20 Mg Tablet 40 MG ORAL DAILY, #10 TAB Prov: Conner Seo MD 04/28/18 Levofloxacin* (LEVAQUIN*) 750 Mg Tablet 750 MG ORAL DAILY for 5 Days, TAB Prov: Conner Seo MD 04/28/18 Referrals: MIKI TY (PCP) Patient Instructions: Community-Acquired Pneumonia, Adult, Aayh-[id number]-Bpck Conner Seo MD Apr 28, 2018 14:10
== END 2018-04-28 14:00 | disposition home or self-care (01) ==
LOC: EMR 11:46
DX: J18.9 Pneumonia, unspecified organism (principal); J45.909 Unspecified asthma, uncomplicated; I10 Essential (primary) hypertension; Z91.013 Allergy to seafood
CPT/HCPCS: 94640; 94664; 99284; J7512

== ENCOUNTER 2018-07-13 22:09 | Emergency (ER) | payer BC ==
[~2018-07-13] VITALS: Ht 162.6 cm; Wt 63.5 kg
[~2018-07-13 22:09] MED LIST changes: +ALBUTEROL SULF8.5 GM INH; +PREDNISONE20 MG ORAL
[2018-07-13 22:20] VITALS: BP 157/82
--- NOTE | 2018-07-13 22:21 | NUR ---
ED Nurse Note: Patient walked in to Er c/o SOB. Pt's O2 sat at 84 % placed patient on nasal canula, on 2L. AAO x4, VSS at this time, skin is dry, intact, warm to touch.
--- NOTE | 2018-07-13 22:24 | Emergency Room Report ---
History of Present Illness General Chief Complaint: Dyspnea/Respdistress Source: Patient Present Illness HPI This is a 73-year-old female with a history of high blood pressure and asthma. She presents with chief complaint shortness of breath. Onset was acute and occurred couple hours prior to arrival. She was watching TV when all said she felt short of breath and start coughing. She was wheezing. No relief with her albuterol inhaler. Similar symptom in the past. Denies any chest pain. No nausea no vomiting. No fever chills. Exertion made it worse. Rest made it better. She came by EMS. Allergies: Coded Allergies: SHELLFISH DERIVED (Verified Allergy, Unknown, 02/04/18) Patient History Past Medical History: see triage record, old chart reviewed, HTN, asthma Past Surgical History: other Pertinent Family History: none Social History: Denies: smoking Last Menstrual Period: n/a Now: No Immunizations: other Reviewed Nursing Documentation: PMH: Agreed; PSxH: Agreed Nursing Documentation-PMH Past Medical History: No History, Except For Hx Hypertension: Yes Hx Asthma: Yes Review of Systems Eye: Denies: eye pain, blurred vision ENT: Denies: ear pain, nose congestion, throat swelling Respiratory: Reports: cough, shortness of breath, wheezing Cardiovascular: Denies: chest pain, palpitations Gastrointestinal: Denies: abdominal pain, diarrhea, nausea, vomiting Musculoskeletal: Denies: back pain, joint pain Skin: Denies: rash Neurological: Denies: headache, numbness Endocrine: Denies: increased thirst, increased urine Hematologic/Lymphatic: Denies: easy bruising All Other Systems: negative except mentioned in HPI Physical Exam Vital Signs Date Time Temp Pulse Resp B/P (MAP) Pulse Ox O2 Delivery O2 Flow Rate FiO2 07/13/18 22:15 98.2 95 18 83 Room Air 07/13/18 22:20 157/82 vitals with hypoxia Sp02 EP Interpretation: reviewed, normal General Appearance: well appearing, alert, moderate distress Head: normocephalic, atraumatic Eyes: bilateral eye PERRL, bilateral eye EOMI ENT: hearing grossly normal, normal pharynx Neck: full range of motion, supple, no meningismus Respiratory: chest non-tender, respiratory distress, decreased breath sounds, accessory muscle use, wheezing Cardiovascular #1: regular rate, rhythm, no murmur Gastrointestinal: normal bowel sounds, non tender, no mass, no organomegaly, no bruit, non-distended Musculoskeletal: back normal, gait/station normal, normal range of motion Psychiatric: mood/affect normal Skin: warm/dry Medical Decision Making Diagnostic Impression: Primary Impression: COPD exacerbation ER Course Patient presents with coughing and wheezing. No evidence of pneumonia, ACS, PE , dissection to name a few. CT scan did show emphysema. She said she has secondhand smoke from her . She herself doesn't smoke. She felt better now. oxygenation 98% on room Air. We'll discharge home. EKG Diagnostic Results EP Interpretation: 94 Rate: normal Rhythm: NSR ST Segments: no acute changes Rhythm Strip Diag. Results EP Interpretation: yes Rate: 88 Rhythm: NSR, no PVC's, no ectopy Chest X-Ray Diagnostic Results Chest X-Ray Diagnostic Results : Chest X-Ray Ordered: Yes # of Views/Limited/Complete: 1 View Indication: Shortness of Breath EP Interpretation: Yes Interpretation: no consolidation, no effusion, no pneumothorax, no acute cardiopulmonary disease Impression: No acute disease Electronically Signed by: Derrell García MD CT/MRI/US Diagnostic Results CT/MRI/US Diagnostic Results : Imaging Test Ordered: CT chest Impression Read by radiologist. Emphysema. Negative for infection. Last Vital Signs Date Time Temp Pulse Resp B/P (MAP) Pulse Ox O2 Delivery O2 Flow Rate FiO2 07/13/18 22:20 95 18 Room Air 07/13/18 22:20 98.2 157/82 83 Status: improved Disposition: HOME, SELF-CARE Condition: Stable Scripts Codeine/Promethazine Hcl* (PROMETHAZINE-CODEINE SYRUP*) 118 Ml Syrup 5 ML ORAL Q6H PRN for For Cough, #118 ML 0 Refills Prov: Derrell García MD 07/14/18 Prednisone* (PREDNISONE*) 20 Mg Tablet 40 MG ORAL DAILY, #10 TAB Prov: Derrell García MD 07/14/18 Albuterol Sulfate* (ALBUTEROL SULFATE MDI*) 8.5 Gm Hfa.aer.ad 2 PUFF INH Q4H PRN for cough/wheezing, #1 EA 0 Refills Prov: Derrell García MD 07/14/18 Patient Instructions: Chronic Obstructive Pulmonary Disease Exacerbation Additional Instructions: Follow-up with your in 3-5 days. Return if symptom worsen. Derrell García MD July 13, 2018 22:24
[2018-07-13] MEDS ORDERED: Albuterol ud Inhalation HHN ONE ×2 (22:30→23:00)
[2018-07-13] MEDS ORDERED: Solu-MEDROL 125mg Inj IVP ONE (22:30)
[2018-07-13] MEDS ORDERED: Ipratropium 0.02% Inh Soln 2.5ml UD HHN ONE (22:30)
[2018-07-13 22:56] LABS: BASOPHILS % (AUTO) 1.3 % (0.0-2.0); EOSINOPHILS % (AUTO) 5.7 % (0.0-3.0); HEMATOCRIT 37.3 % (37.0-47.0); HEMOGLOBIN 12.8 G/DL (12.0-16.0); LYMPHOCYTES % (AUTO) 31.7 % (20.0-45.0); MEAN CORPUSCULAR VOLUME 88 FL (80-99); MONOCYTES % (AUTO) 6.8 % (1.0-10.0); NEUTROPHILS % (AUTO) 54.5 % (45.0-75.0); PLATELET COUNT 186 K/UL (150-450); RED BLOOD COUNT 4.27 M/UL (4.20-5.40); WHITE BLOOD COUNT 6.4 K/UL (4.8-10.8)
[2018-07-13 23:07] LABS: ANION GAP 8 mmol/L (5-15); BLOOD UREA NITROGEN 19 mg/dL (7-18); CALCIUM 9.1 MG/DL (8.5-10.1); CARBON DIOXIDE 28 MMOL/L (21-32); CHLORIDE 104 MMOL/L (98-107); CREATININE 1.1 MG/DL (0.55-1.30); POTASSIUM 3.5 MMOL/L (3.5-5.1); SODIUM 139 MMOL/L (136-145)
[2018-07-13] MEDS ORDERED: Isovue-370 150ml vial INJ PRN (23:15)
[2018-07-13 23:21] LABS: ALANINE AMINOTRANSFERASE 20 U/L (12-78); ALBUMIN 3.9 G/DL (3.4-5.0); ALKALINE PHOSPHATASE 96 U/L (46-116); ASPARTATE AMINO TRANSFERASE 21 U/L (15-37); BILIRUBIN,TOTAL 0.2 MG/DL (0.2-1.0); CKMB 1.6 NG/ML (0.0-3.6); CREATINE KINASE 151 U/L (26-308)
--- NOTE | 2018-07-13 23:35 | NUR ---
Note carly in EDM - 07/14/18 at 0003 by KKHUDYAKOV ED Nurse Note: Blood transfusion start at 2335, VSS at this time, no acute disstress or transfusion reaction noticed.
--- NOTE | 2018-07-13 23:35 | NUR ---
ED Nurse Note: Blood transfusion start at 2335, VSS at this time, no acute disstress or transfusion reaction noticed.
[2018-07-14] MEDS ORDERED: ALBUTEROL SULF8.5 GM INH (00:33)
[2018-07-14] MEDS ORDERED: PREDNISONE20 MG ORAL (00:33)
[2018-07-14] MEDS ORDERED: PROMETHAZINE-C118 M1 ORAL (00:33)
[2018-07-14 01:14] VITALS: BP 157/82
--- NOTE | 2018-07-14 01:15 | NUR ---
ER DISCHARGE NOTE: Patient is cleared to be discharged per ERMD, pt is aox4, on room air, with stable vital signs. pt was given dc and prescription instructions, pt was able to verbalize understanding, pt id band and iv site removed without complications. pt is able to ambulate with steady gait. pt took all belongings.
--- NOTE | 2018-07-14 13:53 | Diagnostic Imaging Report ---
Indication: Chest pain Technique: Continuous helical transaxial imaging of the chest was obtained from the thoracic inlet to the upper abdomen during rapid intravenous contrast administration. Arterial phase of enhancement obtained. Coronal 2-D reformats were also obtained and maximum intensity projection images in multiple planes. Study obtained in a Siemens sensation [address] Automatic Exposure Control was utilized. Total Dose length Product (DLP): 604.[address] Dose Index Volume (CTDIvol): 17.93 mGy Comparison: None Findings: The pulmonary artery is well opacified and shows no filling defects. There is no adenopathy, pleural or pericardial effusions are identified. There is no aortic dissection or aneurysm identified within the chest. The lungs show mild patchy areas of hyperlucency consistent with emphysema and COPD. The changes are mild.. Visualized part of the upper abdomen demonstrates hepatic cysts and slightly increased density within the medullary aspects of both kidneys, partially imaged on this study. Slight nodularity of the visualized adrenal glands also noted. Impression: No evidence of pulmonary embolus, aortic dissection or aneurysm. Mild COPD. Suggestion of hepatic cysts. Increased medullary density. Consider medullary nephrocalcinosis. This is only partially seen on the current study. Nodular partially imaged adrenal glands. The CT scanner at [facility] is accredited by the [employer] and the scans are performed using dose optimization techniques as appropriate to a performed exam including Automatic Exposure control.
--- NOTE | 2018-07-14 13:54 | Diagnostic Imaging Report ---
Indication: Dyspnea Comparison: 02/04/2018 A single view chest radiograph was obtained. Findings: Cardiomediastinal appearance is within normal limits for age. The lungs are clear. Pulmonary vascularity is appropriate. The diaphragmatic contour is smooth and costophrenic angles are sharp. No pleural effusions are identified. The bones are unremarkable. Impression: No acute findings
--- NOTE | 2018-07-14 17:32 | Cardiology Report ---
APPROVED REPORT EKG Measurement Heart [id number] [place] [id number] Normal sinus rhythm Possible Left atrial enlargement Septal infarct, age undetermined Abnormal ECG
== END 2018-07-14 01:15 | disposition home or self-care (01) ==
LOC: EMR 22:25
DX: J44.1 Chronic obstructive pulmonary disease with (acute) exacerbation (principal); Z91.013 Allergy to seafood; I10 Essential (primary) hypertension
CPT/HCPCS: 36415; 71045; 71275; 80053; 82550; 82553; 83880; 84484; 85025; 85379; 93005; 94640; 94664; 96365; 96375; 99284; J2930; Q9967

== ENCOUNTER 2018-09-05 12:57 | Emergency (ER) | payer BC ==
[~2018-09-05] VITALS: Ht 165.1 cm; Wt 51.7 kg
[~2018-09-05 12:57] MED LIST changes: +PROMETHAZINE-C118 M1 ORAL
--- NOTE | 2018-09-05 13:10 | NUR ---
ED Nurse Note: Patient walked into ED c/o asthma symptoms, audible wheezing noted. patient is alert awake x4 ambulatory.
[2018-09-05 13:12] VITALS: BP 160/85
[2018-09-05] MEDS: Albuterol ud Inhalation HHN SCH ×3 (13:36→14:13)
[2018-09-05] MEDS: Ipratropium 0.02% Inh Soln 2.5ml UD HHN SCH ×3 (13:36→14:13)
--- NOTE | 2018-09-05 13:48 | Emergency Room Report ---
History of Present Illness General Chief Complaint: Asthma Source: Patient Present Illness HPI 73-year-old female presents ED for evaluation. Complaining of cough and shortness of breath x1 day. History of asthma. States that she was prescribed a nebulizer but has not yet received it. States she has a cough which is dry. Denies fevers or chills. Denies chest pain. Denies sick contacts or recent travel. No other aggravating relieving factors. Denies any other associated symptoms Allergies: Coded Allergies: SHELLFISH DERIVED (Verified Allergy, Unknown, 02/04/18) Patient History Past Medical History: HTN, asthma Past Surgical History: none Pertinent Family History: none Social History: Denies: smoking, alcohol use, drug use Now: No Immunizations: UTD Reviewed Nursing Documentation: PMH: Agreed; PSxH: Agreed Nursing Documentation-PMH Past Medical History: No History, Except For Hx Hypertension: Yes Hx Asthma: Yes Review of Systems All Other Systems: negative except mentioned in HPI Physical Exam Vital Signs Date Time Temp Pulse Resp B/P (MAP) Pulse Ox O2 Delivery O2 Flow Rate FiO2 09/05/18 13:04 98.6 96 20 159/91 (113) 78 Room Air 09/05/18 13:12 2.0 09/05/18 13:25 28 Sp02 EP Interpretation: reviewed, normal General Appearance: no apparent distress, alert, GCS 15, non-toxic Head: normocephalic, atraumatic Eyes: bilateral eye normal inspection, bilateral eye PERRL ENT: hearing grossly normal, normal pharynx, no angioedema, normal voice Neck: full range of motion, supple/symm/no masses Respiratory: chest non-tender, lungs clear, speaking full sentences, wheezing Cardiovascular #1: regular rate, rhythm, no edema Cardiovascular #2: 2+ carotid (R), 2+ carotid (L), 2+ radial (R), 2+ radial (L) , 2+ dorsalis pedis (R), 2+ dorsalis pedis (L) Gastrointestinal: normal bowel sounds, non tender, soft, non-distended, no guarding, no rebound Rectal: deferred Genitourinary: normal inspection, no CVA tenderness Musculoskeletal: back normal, gait/station normal, normal range of motion, non- tender Neurologic: alert, oriented x3, responsive, motor strength/tone normal, sensory intact, speech normal Psychiatric: judgement/insight normal, memory normal, mood/affect normal, no suicidal/homicidal ideation Reflexes: 3+ bicep (R), 3+ bicep (L), 3+ tricep (R), 3+ tricep (L), 3+ knee (R) , 3+ knee (L) Lymphatic: no adenopathy Medical Decision Making Diagnostic Impression: Primary Impression: Asthma attack Qualified Codes: J45.901 - Unspecified asthma with (acute) exacerbation ER Course Hospital Course 73-year-old female presents to ED complaining of cough, wheezing Differential diagnoses include: URI, bronchitis, asthma/COPD, pneumonia Clinical course Patient placed on stretcher. After initial history, physical exam reveals an elderly female in no acute distress. Bilateral TM unremarkable. No pharyngeal erythema. No tonsillar exudates. No lymphadenopathy. Mild wheezing noted on exam, no signs of respiratory distress or retractions. Patient given Prednisone and albuterol treatment chest X-rayno consolidation, no acute process On reassessment symptoms improved. Improved breath sounds bilaterally. Discussed findings with patient. Safe for discharge for close outpatient follow -up. States she has a PMD. I will provide prescriptions for albuterol and prednisone Diagnosis - asthma attack Stable and discharged home with prescriptions for albuterol, prednisone. Instructed to followup with PMD. Return to ED if symptoms recur or worsen Chest X-Ray Diagnostic Results Chest X-Ray Diagnostic Results : Chest X-Ray Ordered: Yes # of Views/Limited/Complete: 1 View Indication: Shortness of Breath EP Interpretation: Yes Interpretation: no consolidation, no effusion, no pneumothorax, no acute cardiopulmonary disease Impression: No acute disease Electronically Signed by: Electronically signed by Conner Seo MD Last Vital Signs Date Time Temp Pulse Resp B/P (MAP) Pulse Ox O2 Delivery O2 Flow Rate FiO2 09/05/18 13:33 89 20 97 Nasal Cannula 2.0 28 09/05/18 13:12 98.6 160/85 Status: improved Disposition: HOME, SELF-CARE Condition: Stable Scripts Albuterol Sulfate* (ALBUTEROL SULFATE MDI*) 8.5 Gm Hfa.aer.ad 2 PUFF INH Q6H, #1 EA 0 Refills Prov: Conner Seo MD 09/05/18 Prednisone* (PREDNISONE*) 20 Mg Tablet 40 MG ORAL DAILY, #10 TAB Prov: Conner Seo MD 09/05/18 Referrals: NON PHYSICIAN (PCP) Conner Seo MD Sep 05, 2018 13:48
[2018-09-05] MEDS ORDERED: ALBUTEROL SULF8.5 GM INH (13:58)
[2018-09-05] MEDS ORDERED: PREDNISONE20 MG ORAL (13:58)
[2018-09-05 14:47] VITALS: BP 160/85
--- NOTE | 2018-09-05 14:47 | NUR ---
ER DISCHARGE NOTE: Patient is cleared to be discharged per ERMD DR JAMES, pt is aox4, on room air, with stable vital signs. pt was given dc and prescription instructions, pt was able to verbalize understanding, pt id band removed without complications. pt is able to ambulate with steady gait. pt took all belongings.
--- NOTE | 2018-09-06 11:11 | Diagnostic Imaging Report ---
Indication: Shortness of breath Technique: One view of the chest Comparison: 07/13/2018 Findings: Lungs and pleural spaces are clear. Heart size is normal. The aorta is tortuous and calcified. No significant interim change Impression: No acute process
== END 2018-09-05 14:46 | disposition home or self-care (01) ==
LOC: EMR 13:23
DX: J45.901 Unspecified asthma with (acute) exacerbation (principal); I10 Essential (primary) hypertension; Z91.013 Allergy to seafood
CPT/HCPCS: 71045; 94644; 94664; 99284; J7512

== ENCOUNTER 2019-07-26 22:26 | Inpatient (IN) | payer BC ==
[~2019-07-26] VITALS: Ht 165.1 cm; Wt 58.1 kg
[2019-07-26 22:30] VITALS: BP 198/107
[2019-07-26] MEDS ORDERED: Solu-MEDROL 125mg Inj IVP ONE (22:45)
[2019-07-26] MEDS ORDERED: Ipratropium 0.02% Inh Soln 2.5ml UD HHN ONE (23:15)
[2019-07-26] MEDS ORDERED: Albuterol ud Inhalation HHN ONE (23:15)
[2019-07-26 23:19] LABS: BASOPHILS % (AUTO) 1.9 % (0.0-2.0); EOSINOPHILS % (AUTO) 14.5 % (0.0-3.0); HEMATOCRIT 36.8 % (37.0-47.0); HEMOGLOBIN 11.6 G/DL (12.0-16.0); MEAN CORPUSCULAR VOLUME 95 FL (80-99); MONOCYTES % (AUTO) 7.7 % (1.0-10.0); NEUTROPHILS % (AUTO) 53.9 % (45.0-75.0); PLATELET COUNT 174 K/UL (150-450); RED BLOOD COUNT 3.89 M/UL (4.20-5.40); WHITE BLOOD COUNT 5.5 K/UL (4.8-10.8)
--- NOTE | 2019-07-26 23:20 | Emergency Room Report ---
History of Present Illness General Chief Complaint: Dyspnea/Respdistress Source: Patient Present Illness HPI Patient presents with complaints of shortness of breath She used her inhaler on 3 occasions also found that her blood pressure was elevated and was concerned and came to the ER denies any chest pain denies any fever Denies any vomiting or diarrhea denies any abdominal pain Denies any focal weakness Denies any productive sputum Denies any neck pain or photophobia Allergies: Coded Allergies: CODEINE (Verified Allergy, Unknown, 07/26/19) SHELLFISH DERIVED (Verified Allergy, Unknown, 02/04/18) COVID-19 Screening Contact w/high risk pt: No Recent Travel to affected area: No Experienced COVID-19 symptoms?: Yes COVID-19 symptoms experienced: Shortness of Breath, Cough, Flu-Like Symptoms COVID-19 Testing performed RESIDENTIAL CARE FACILITY MANAGER: No Patient History Past Medical History: see triage record Last Menstrual Period: na Now: No Reviewed Nursing Documentation: PMH: Agreed; PSxH: Agreed Nursing Documentation-PMH Past Medical History: No History, Except For Hx Hypertension: Yes Hx Asthma: Yes Review of Systems All Other Systems: negative except mentioned in HPI Physical Exam Vital Signs Date Time Temp Pulse Resp B/P (MAP) Pulse Ox O2 Delivery O2 Flow Rate FiO2 07/26/19 22:27 99.0 110 20 198/107 (137) 87 Room Air Sp02 EP Interpretation: reviewed, abnormal - 87% on room air which is low, on 2 L patient saturating at 95% which is normal General Appearance: mild distress - Short of breath and uncomfortable Head: normocephalic, atraumatic Eyes: bilateral eye PERRL, bilateral eye EOMI ENT: EOM grossly intact, normal pharynx Neck: full range of motion Respiratory: wheezing - Bilaterally and mildly tachypneic Cardiovascular #1: regular rate, rhythm Gastrointestinal: normal bowel sounds, non tender Genitourinary: no CVA tenderness Musculoskeletal: normal inspection Neurologic: alert, oriented x3 Psychiatric: normal inspection Skin: no rash Lymphatic: no adenopathy Procedures Critical Care Time Critical Care Time 40 minutes for multiple re-evaluations initial respiratory distress presentation concern for respiratory failure not including any procedural time Medical Decision Making Diagnostic Impression: Primary Impression: Dyspnea Additional Impressions: Asthma attack COPD exacerbation ER Course Patient is a fairly complex patient with multiple differential to consideration including but not limited to cardiac cardiopulmonary and vascular emergencies Patient's blood work is appropriate x-ray imaging does not show any acute process patient is doing significantly better with acute intervention Given her age and comorbidities she will have covid-19 Testing performed for rule out And admitted for further care Labs Test 07/26/19 22:25 07/26/19 22:50 Urine Color Pale yellow Urine Appearance Clear Urine pH 6 (4.5-8.0) Urine Specific [place] 1.010 (1.005-1.035) Urine Protein 2+ (NEGATIVE) Urine Glucose (UA) Negative (NEGATIVE) Urine Ketones Negative (NEGATIVE) Urine Blood 2+ (NEGATIVE) Urine Nitrite Negative (NEGATIVE) Urine Bilirubin Negative (NEGATIVE) Urine Urobilinogen Normal MG/DL (0.0-1.0) Urine Leukocyte Esterase Negative (NEGATIVE) Urine RBC 2-4 /HPF (0 - 2) Urine WBC 0 /HPF (0 - 2) Urine Squamous Epithelial Cells Few /LPF (NONE/OCC) Urine Bacteria None /HPF (NONE) White Blood Count 5.5 K/UL (4.8-10.8) Red Blood Count 3.89 M/UL (4.20-5.40) Hemoglobin 11.6 G/DL (12.0-16.0) Hematocrit 36.8 % (37.0-47.0) Mean Corpuscular Volume 95 FL (80-99) Mean Corpuscular Hemoglobin 29.8 PG (27.0-31.0) Mean Corpuscular Hemoglobin Concent 31.5 G/DL (32.0-36.0) Red Cell Distribution Width 13.0 % (11.6-14.8) Platelet Count 174 K/UL (150-450) Mean Platelet Volume 8.3 FL (6.5-10.1) Neutrophils (%) (Auto) 53.9 % (45.0-75.0) Lymphocytes (%) (Auto) 22.0 % (20.0-45.0) Monocytes (%) (Auto) 7.7 % (1.0-10.0) Eosinophils (%) (Auto) 14.5 % (0.0-3.0) Basophils (%) (Auto) 1.9 % (0.0-2.0) Sodium Level 139 MMOL/L (136-145) Potassium Level 3.9 MMOL/L (3.5-5.1) Chloride Level 104 MMOL/L (98-107) Carbon Dioxide Level 26 MMOL/L (21-32) Anion Gap 9 mmol/L (5-15) Blood Urea Nitrogen 19 mg/dL (7-18) Creatinine 1.1 MG/DL (0.55-1.30) Estimat Glomerular Filtration Rate 58.8 mL/min (>60) Glucose Level 109 MG/DL (74-106) Lactic Acid Level 1.20 mmol/L (0.4-2.0) Calcium Level 8.6 MG/DL (8.5-10.1) Total Bilirubin 0.2 MG/DL (0.2-1.0) Aspartate Amino Transf (AST/SGOT) 31 U/L (15-37) Alanine Aminotransferase (ALT/SGPT) < 6 U/L (12-78) Alkaline Phosphatase 55 U/L (46-116) Total Creatine Kinase 449 U/L (26-308) Creatine Kinase MB 3.1 NG/ML (0.0-3.6) Creatine Kinase MB Relative Index 0.6 Troponin I 0.008 ng/mL (0.000-0.056) Pro-B-Type Natriuretic Peptide 214 pg/mL (0-125) Total Protein 6.7 G/DL (6.4-8.2) Albumin 3.5 G/DL (3.4-5.0) Globulin 3.2 g/dL Albumin/Globulin Ratio 1.1 (1.0-2.7) Lipase 100 U/L (73-393) Rhythm Strip Diag. Results EP Interpretation: yes Rate: 66 Rhythm: NSR, no PVC's, no ectopy Chest X-Ray Diagnostic Results Chest X-Ray Diagnostic Results : Chest X-Ray Ordered: Yes # of Views/Limited/Complete: 1 View Indication: Shortness of Breath EP Interpretation: Yes Interpretation: no consolidation, no effusion, no pneumothorax Impression: No acute disease Electronically Signed by: Marita De La Rosa DO Last Vital Signs Date Time Temp Pulse Resp B/P (MAP) Pulse Ox O2 Delivery O2 Flow Rate FiO2 07/26/19 22:27 99.0 110 20 198/107 (137) 87 Room Air Status: improved Disposition: ADMITTED INPATIENT Condition: Serious Referrals: FELIX STEWARTREFERDARYN (PCP) Marita De La Rosa DO July 26, 2019 23:20
[2019-07-26 23:34] LABS: ANION GAP 9 mmol/L (5-15); BLOOD UREA NITROGEN 19 mg/dL (7-18); CALCIUM 8.6 MG/DL (8.5-10.1); CARBON DIOXIDE 26 MMOL/L (21-32); CHLORIDE 104 MMOL/L (98-107); CREATININE 1.1 MG/DL (0.55-1.30); POTASSIUM 3.9 MMOL/L (3.5-5.1); SODIUM 139 MMOL/L (136-145)
[2019-07-26 23:48] LABS: ALBUMIN 3.5 G/DL (3.4-5.0); ALBUMIN/GLOBULIN RATIO 1.1 (1.0-2.7); ALKALINE PHOSPHATASE 55 U/L (46-116); ASPARTATE AMINO TRANSFERASE 31 U/L (15-37); BILIRUBIN,TOTAL 0.2 MG/DL (0.2-1.0); CKMB 3.1 NG/ML (0.0-3.6); CREATINE KINASE 449 U/L (26-308)
[2019-07-26 23:49] LABS: APPEARANCE,URINE CLEAR; BILIRUBIN, URINE NEGATIVE (NEGATIVE); COLOR,URINE PALE YELLOW; GLUCOSE, URINE (UA) NEGATIVE (NEGATIVE); KETONES,URINE NEGATIVE (NEGATIVE); LEUKOCYTE ESTERASE ,URINE NEGATIVE (NEGATIVE); NITRITE,URINE NEGATIVE (NEGATIVE); PH,URINE 6 (4.5-8.0); PROTEIN,URINE 2+ (NEGATIVE); UROBILINOGEN,URINE NORMAL MG/DL (0.0-1.0)
[2019-07-26 23:52] LABS: ALANINE AMINOTRANSFERASE < 6 U/L (12-78)
[2019-07-27] VITALS (8 sets, daily range): BP systolic 127–173; BP diastolic 69–95
[2019-07-27] MEDS ORDERED: IPRATROPIU0.2 MG/1 M HHN (00:13)
[2019-07-27] MEDS ORDERED: GABAPENTIN100 MG ORAL (00:14)
[2019-07-27] MEDS ORDERED: IBUPROFEN600 M1 ORAL (00:14)
[2019-07-27] MEDS ORDERED: ADALAT10 MG ORAL (00:14)
[2019-07-27] MEDS ORDERED: ACETAMINOPHEN-1 EAC4 ORAL (00:14)
[2019-07-27] MEDS ORDERED: SYMBICORT 16010.2 G1 IH (01:19)
[2019-07-27] MEDS ORDERED: ZYRTEC10 M3 ORAL (01:21)
[2019-07-27] MEDS ORDERED: D5 1/2NS 1,000 ML IV SCH (04:45)
[2019-07-27] MEDS ORDERED: Ipratropium 0.02% Inh Soln 2.5ml UD HHN PRN (04:45)
[2019-07-27] MEDS ORDERED: Potassium Chloride 10 MEQ in D5 1/2NS 1,000 ML IV SCH (04:45)
[2019-07-27] MEDS ORDERED: Albuterol 90mcg Inhaler 8gm INH SCH (04:45)
[2019-07-27 05:33] LABS: HEMATOCRIT 34.9 % (37.0-47.0); HEMOGLOBIN 12.8 G/DL (12.0-16.0); MEAN CORPUSCULAR VOLUME 85 FL (80-99); PLATELET COUNT 189 K/UL (150-450); RED BLOOD COUNT 4.11 M/UL (4.20-5.40); RED CELL DISTRIBUTION WIDTH 11.2 % (11.6-14.8)
[2019-07-27 06:21] LABS: ANION GAP 11 mmol/L (5-15); BLOOD UREA NITROGEN 17 mg/dL (7-18); CALCIUM 9.1 MG/DL (8.5-10.1); CARBON DIOXIDE 26 MMOL/L (21-32); CHLORIDE 103 MMOL/L (98-107); SODIUM 140 MMOL/L (136-145)
[2019-07-27] MEDS ORDERED: Dorzolamide 2% 10ml Btl BOTH EYES SCH (09:00)
--- NOTE | 2019-07-27 10:32 | Consultation ---
History of Present Illness General Date patient seen: July 27, 2019 Chief Complaint: Dyspnea/Respdistress Referring physician: Sawyer Reason for Consultation: Asthma Present Illness HPI Patient presents with complaints of shortness of breath She used her inhaler on 3 occasions also found that her blood pressure was elevated and was concerned and came to the ER denies any chest pain denies any fever Denies any vomiting or diarrhea denies any abdominal pain Denies any focal weakness Denies any productive sputum Denies any neck pain or photophobia Allergies: Coded Allergies: CODEINE (Verified Allergy, Unknown, 07/26/19) SHELLFISH DERIVED (Verified Allergy, Unknown, 02/04/18) Medication History Scheduled Atorvastatin Calcium* (Atorvastatin Calcium*), 20 MG ORAL BEDTIME, (Reported) Budesonide/Formoterol Fumarate (Symbicort 160-4.5 Mcg Inhaler), 2 PUFF IH BID, ( Reported) Cetirizine Hcl (Zyrtec), 10 MG ORAL DAILY, (Reported) Nifedipine Er* (Adalat Cc*), 30 MG ORAL DAILY, (Reported) Discontinued Medications Acetaminophen With Codeine 300MG/60MG* (Acetaminophen With Codeine #4 Tab*), 1 TAB ORAL Q6H PRN for For Pain, (Reported) Discontinued Reason: Therapy completed Albuterol Sulfate* (Albuterol Sulfate Mdi*), 2 PUFF INH Q4H PRN for cough/ wheezing Discontinued Reason: Therapy completed Albuterol Sulfate* (Albuterol Sulfate Mdi*), 2 PUFF INH Q6H Discontinued Reason: Therapy completed Codeine/Promethazine Hcl* (Promethazine-Codeine Syrup*), 5 ML ORAL Q6H PRN for For Cough Discontinued Reason: Pt stopped taking med Dorzolamide Hcl* (Trusopt*), 1 DROP BOTH EYES TID, (Reported) Discontinued Reason: Therapy completed Gabapentin* (Gabapentin*), 100 MG ORAL THREE TIMES A DAY, (Reported) Discontinued Reason: Therapy completed Ibuprofen* (Motrin*), 600 MG ORAL FOUR TIMES A DAY, (Reported) Discontinued Reason: Therapy completed Ipratropium [place] 0.5MG/2.5ML (Ipratropium [place] 0.5MG/2.5ML), 0.5 MG HHN Q6H PRN for Shortness of Breath, (Reported) Discontinued Reason: Therapy completed Latanoprost/Pf (Latanoprost 0.005% Eye Drop), 7.5 ML OP, (Reported) Discontinued Reason: Therapy completed Nifedipine (Nifedipine*), 10 MG ORAL EVERY 8 HOURS, (Reported) Discontinued Reason: Pt stopped taking med Prednisone* (Prednisone*), 40 MG ORAL DAILY Discontinued Reason: Pt stopped taking med Prednisone* (Prednisone*), 40 MG ORAL DAILY Discontinued Reason: Pt stopped taking med Patient History History Provided By: Patient Healthcare decision maker Resuscitation status Advanced Directive on File Past Medical/Surgical History Past Medical/Surgical History: (1) Hyperlipemia (2) Asthma attack Social History Social History: (1) Non-smoker Review of Systems Eye: Reports: no symptoms ENT: Reports: no symptoms Respiratory: Reports: no symptoms Cardiovascular: Reports: no symptoms Gastrointestinal: Reports: no symptoms Genitourinary: Reports: no symptoms Musculoskeletal: Reports: no symptoms Physical Exam General Appearance: WD/WN, no apparent distress Lines, tubes and drains: peripheral HEENT: normocephalic Neck: non-tender Respiratory/Chest: chest wall non-tender, lungs clear Cardiovascular/Chest: normal peripheral pulses Last 24 Hour Vital Signs Date Time Temp Pulse Resp B/P (MAP) Pulse Ox O2 Delivery O2 Flow Rate FiO2 07/27/19 09:07 89 160/91 07/27/19 08:00 98.8 89 160/91 (114) 20 07/27/19 08:00 88 07/27/19 06:34 85 154/81 (105) 07/27/19 05:55 92 161/87 (111) 07/27/19 05:50 102 168/86 (113) 95 07/27/19 04:00 83 07/27/19 04:00 95 07/27/19 02:51 84 143/75 (97) 07/27/19 01:36 Room Air 07/27/19 01:33 92 07/27/19 01:13 98.8 95 173/95 (121) 95 07/27/19 00:55 99.0 98 16 150/75 100 Nasal Cannula 2.0 07/27/19 00:20 99.0 99 15 148/69 100 Room Air 2.0 21 07/26/19 23:44 86 18 100 Nasal Cannula 2.0 28 97 20 100 07/26/19 23:21 96 20 Room Air 21 07/26/19 22:30 99.0 100 20 198/107 90 Nasal Cannula 2.0 07/26/19 22:27 99.0 110 20 198/107 (137) 87 Room Air Laboratory Tests Test 07/26/19 22:25 07/26/19 22:50 07/27/19 05:13 Urine Color Pale yellow Urine Appearance Clear Urine pH 6 (4.5-8.0) Urine Specific [place] 1.010 (1.005-1.035) Urine Protein 2+ (NEGATIVE) H Urine Glucose (UA) Negative (NEGATIVE) Urine Ketones Negative (NEGATIVE) Urine Blood 2+ (NEGATIVE) H Urine Nitrite Negative (NEGATIVE) Urine Bilirubin Negative (NEGATIVE) Urine Urobilinogen Normal MG/DL (0.0-1.0) Urine Leukocyte Esterase Negative (NEGATIVE) Urine RBC 2-4 /HPF (0 - 2) H Urine WBC 0 /HPF (0 - 2) Urine Squamous Epithelial Cells Few /LPF (NONE/OCC) Urine Bacteria None /HPF (NONE) White Blood Count 5.5 K/UL (4.8-10.8) 5.0 K/UL (4.8-10.8) Red Blood Count 3.89 M/UL (4.20-5.40) L 4.11 M/UL (4.20-5.40) L Hemoglobin 11.6 G/DL (12.0-16.0) L 12.8 G/DL (12.0-16.0) Hematocrit 36.8 % (37.0-47.0) L 34.9 % (37.0-47.0) L Mean Corpuscular Volume 95 FL (80-99) 85 FL (80-99) # Mean Corpuscular Hemoglobin 29.8 PG (27.0-31.0) 31.2 PG (27.0-31.0) H Mean Corpuscular Hemoglobin Concent 31.5 G/DL (32.0-36.0) L 36.7 G/DL (32.0-36.0) H Red Cell Distribution Width 13.0 % (11.6-14.8) 11.2 % (11.6-14.8) L Platelet Count 174 K/UL (150-450) 189 K/UL (150-450) Mean Platelet Volume 8.3 FL (6.5-10.1) 7.7 FL (6.5-10.1) Neutrophils (%) (Auto) 53.9 % (45.0-75.0) % (45.0-75.0) Lymphocytes (%) (Auto) 22.0 % (20.0-45.0) % (20.0-45.0) Monocytes (%) (Auto) 7.7 % (1.0-10.0) % (1.0-10.0) Eosinophils (%) (Auto) 14.5 % (0.0-3.0) H % (0.0-3.0) Basophils (%) (Auto) 1.9 % (0.0-2.0) % (0.0-2.0) Sodium Level 139 MMOL/L (136-145) 140 MMOL/L (136-145) Potassium Level 3.9 MMOL/L (3.5-5.1) 4.0 MMOL/L (3.5-5.1) Chloride Level 104 MMOL/L (98-107) 103 MMOL/L (98-107) Carbon Dioxide Level 26 MMOL/L (21-32) 26 MMOL/L (21-32) Anion Gap 9 mmol/L (5-15) 11 mmol/L (5-15) Blood Urea Nitrogen 19 mg/dL (7-18) H 17 mg/dL (7-18) Creatinine 1.1 MG/DL (0.55-1.30) 1.0 MG/DL (0.55-1.30) Estimat Glomerular Filtration Rate 58.8 mL/min (>60) > 60 mL/min (>60) Glucose Level 109 MG/DL (74-106) H 164 MG/DL (74-106) H Lactic Acid Level 1.20 mmol/L (0.4-2.0) Calcium Level 8.6 MG/DL (8.5-10.1) 9.1 MG/DL (8.5-10.1) Total Bilirubin 0.2 MG/DL (0.2-1.0) Aspartate Amino Transf (AST/SGOT) 31 U/L (15-37) Alanine Aminotransferase (ALT/SGPT) < 6 U/L (12-78) L Alkaline Phosphatase 55 U/L (46-116) Total Creatine Kinase 449 U/L (26-308) H Creatine Kinase MB 3.1 NG/ML (0.0-3.6) Creatine Kinase MB Relative Index 0.6 Troponin I 0.008 ng/mL (0.000-0.056) Pro-B-Type Natriuretic Peptide 214 pg/mL (0-125) H Total Protein 6.7 G/DL (6.4-8.2) Albumin 3.5 G/DL (3.4-5.0) Globulin 3.2 g/dL Albumin/Globulin Ratio 1.1 (1.0-2.7) Lipase 100 U/L (73-393) Differential Total Cells Counted 100 Neutrophils % (Manual) 91 % (45-75) H Lymphocytes % (Manual) 7 % (20-45) L Monocytes % (Manual) 1 % (1-10) Eosinophils % (Manual) 1 % (0-3) Basophils % (Manual) 0 % (0-2) Band Neutrophils 0 % (0-8) Platelet Estimate Adequate Platelet Morphology Normal Red Blood Cell Morphology Normal Height (Feet): 5 Height (Inches): 5.00 Weight (Pounds): 128 Medications Current Medications Medications (Trade) Dose Ordered Sig/Pamela Route PRN Reason Start Time Stop Time Status Last Admin Dose Admin Albuterol/ Ipratropium (Combivent Respimat) 1 puff Q6HR INH 07/27/19 12:00 08/26/19 11:59 Atorvastatin Calcium (Lipitor) 20 mg BEDTIME ORAL 07/27/19 21:00 10/25/19 20:59 Budesonide/ Formoterol Fumarate (Symbicort 160/ 4.5) 2 puff BID INH 07/27/19 09:00 10/25/19 08:59 07/27/19 09:01 Ceftriaxone Sodium 1 gm/ Dextrose 55 ml @ 110 mls/hr Q24H IVPB 07/27/19 13:00 08/03/19 12:59 Cetirizine HCl (ZyrTEC) 10 mg DAILY ORAL 07/27/19 09:00 10/25/19 08:59 07/27/19 09:02 Clonidine HCl (Catapres Tab) 0.1 mg Q6H PRN ORAL sbp>160 07/27/19 04:45 10/25/19 04:44 Dextrose/Sodium Chloride 1,000 ml @ 60 mls/hr [id number] IV 07/27/19 04:45 08/26/19 04:44 07/27/19 04:45 Dorzolamide HCl (Trusopt) 1 drop TID BOTH EYES 07/27/19 09:00 08/26/19 08:59 07/27/19 09:02 Gabapentin (Neurontin) 100 mg THREE TIMES A DAY ORAL 07/27/19 09:00 08/26/19 08:59 07/27/19 09:02 Ibuprofen (Motrin) 600 mg FOUR TIMES A DAY ORAL 07/27/19 09:00 08/26/19 08:59 07/27/19 09:07 Nifedipine (Procardia XL) 30 mg DAILY ORAL 07/27/19 09:00 08/26/19 08:59 07/27/19 09:07 Assessment/Plan Status: doing well Status Narrative 74 year with asthma HTN Assessment/Plan: Doing well after HHN Will dc home Symbicort and HHN Discussed with ID and her personal MD (Aung Polanco) Marin Weinstein MD July 27, 2019 10:32
[2019-07-27] MEDS ORDERED: cefTRIAXone 1 GM in D5W 55 ML IVPB SCH (13:00)
--- NOTE | 2019-07-27 14:47 | Diagnostic Imaging Report ---
Indication: Shortness of breath Technique: One view of the chest Comparison: 09/05/2018 Findings: Lungs and pleural spaces are clear. Heart size is normal. No significant change Impression: No acute process
--- NOTE | 2019-07-27 17:30 | History and Physical Report ---
DATE OF ADMISSION: 07/26/2019 DATE AND TIME SEEN: 07/27/2019 at 8 a.m. CONSULTANTS: 1. Marin Weinstein MD. 2. Marita Ramos MD. CHIEF COMPLAINT: COPD exacerbation, rule out COVID. BRIEF HISTORY: This is a 74-year-old female, who presented with 3-day increased shortness of breath, tried inhalers x3 with no improvement, came to [facility], diagnosed with the above, admitted to telemetry for further care. Currently, calm in room. Slight short of breath. No complaint. REVIEW OF SYSTEMS: No chest pain. Slight short of breath. No nausea, vomiting, or diarrhea. PAST MEDICAL HISTORY: Asthma. PAST SURGICAL HISTORY: Unknown. MEDICATIONS: Include Lipitor, Combivent, Symbicort, Zyrtec, Trusopt, Neurontin, Motrin, Procardia, Catapres, ipratropium, methylprednisolone. ALLERGIES: Denies. SOCIAL HISTORY: Unable to obtain. PHYSICAL EXAMINATION: VITAL SIGNS: Temperature is not given, pulse 85, respirations not given, blood pressure 150/81. GENERAL: Awake in bed. HEENT: Normocephalic, atraumatic. NECK: Trachea midline. CARDIOVASCULAR: No peripheral edema. PULMONARY: Comfortable. Breathing on room air. ABDOMEN: No apparent wounds. EXTREMITIES: No cyanosis or clubbing. LABORATORY DATA: Labs at this time show CBC is normal. BMP shows glucose 164, otherwise normal. Troponin 0.008. BNP is 214. Urinalysis, 2+ blood, 2+ protein. ASSESSMENT: 1. COPD exacerbation, rule out COVID. 2. Hyperglycemia. 3. History of asthma. PLAN: 1. O2, pulmonary treatment. 2. Antibiotics per Infectious Disease. 3. Blood sugar control. 4. Dietary followup. 5. PT eval. 6. CBC, BMP in the morning. Krystian Jacques D.O. DR: JENNYFER JOB#: [id number] CC:
--- NOTE | 2019-07-27 17:45 | Consultation ---
DATE OF CONSULTATION: 07/27/2019 INFECTIOUS DISEASES CONSULTATION CONSULTING PHYSICIAN: Marita Ramos MD. REFERRING PHYSICIAN: Krystian Jacques DO. REASON FOR CONSULTATION: Pneumonia, rule out COVID-19 pneumonia. HISTORY OF PRESENTING ILLNESS: This is a 74-year-old lady with history of hypertension, asthma who comes in with cough and shortness of breath. She denies any fever or chills. There was a concern for COVID-19 pneumonia and an Infectious Diseases consultation has been obtained for antibiotics. PAST MEDICAL HISTORY: 1. History of hypertension. 2. History of asthma. SOCIAL HISTORY: She does not smoke. She does not drink. Does not use drugs. FAMILY HISTORY: Son has leukemia. REVIEW OF SYSTEMS: RESPIRATORY: No fever or chills. She has cough. She has shortness of breath. No chest pain. CARDIAC: No chest pain. No palpitation. No dizziness. No syncope. GASTROINTESTINAL: No nausea. No vomiting. No abdominal pain or diarrhea. MEDICATIONS: As an inpatient, she is on atorvastatin, albuterol/ipratropium, budesonide, cetirizine, Trusopt, gabapentin, ibuprofen, nifedipine, clonidine. ALLERGIES: 1. Codeine. 2. Shellfish. PHYSICAL EXAMINATION: VITAL SIGNS: Temperature of 98.8, T-max of 99, pulse of 89, respiratory rate 16, blood pressure of 160/91, O2 saturation of 95% on 2 liters. Examination deferred new to possibility of COVID-19. LABORATORY AND DIAGNOSTIC DATA: White count of 5, hemoglobin 12.8, hematocrit 34.9, MCV 85, platelet count of 189, neutrophils of 91%. Sodium 140, potassium 4, chloride 103, bicarb 26, BUN 17, creatinine 1, glucose 164, calcium 9.1. Total bilirubin 0.2, AST 31, ALT less than 6, alkaline phosphatase 55. CK of 449, CK-MB 3.1. Troponin 0.008. Beta natriuretic peptide 214. Total protein 6.7, albumin 3.5. Lipase of 100. UA is showing 0 white cells. Chest x-ray is showing no consolidation or effusion. ASSESSMENT: This is a 74-year-old lady with history of hypertension and asthma, who comes in with cough and shortness of breath. Would be concerned regarding and 1. rule out COVID-19 pneumonia. 2. Asthma exacerbation. 3. Hypertension. PLAN: 1. We will start the patient on ceftriaxone. 2. Continue isolation. 3. We will follow up on COVID-19 testing. 4. We will follow up cultures and adjust antibiotics accordingly. I would like to thank, Dr. Krystian Jacques, for this consultation. Marita Ramos M.D. DR: JULES JOB#: [id number] CC: Beni Sanchez
[2019-07-27] MEDS ORDERED: Atorvastatin 20mg tab ORAL SCH (21:00)
--- NOTE | 2019-07-28 14:40 | Discharge Summary ---
Discharge Summary Discharge Summary _ DATE OF ADMISSION: 07/26/2019 DATE OF DISCHARGE: 07/27/2019 DISCHARGED BY: Dr. Jacques REASON FOR ADMISSION: 74 years old female with past medical history of asthma, hypertension, hypercholesterolemia, presented to emergency department complaining of shortness of breath. She used her inhaler on 3 occasions. Blood pressure was elevated. Patient came to emergency room for further evaluation and management. She denied chest pain. She denied fevers. She denied any focal weakness . She denied productive sputum. Upon evaluation patient was tachycardic with heart rate 110 , blood pressure was significantly elevated 188/107, pulse oximetry was 87% on the room air. Urinalysis revealed no evidence of urinary tract infection. No leukocytosis, hemoglobin 11.6 , hematocrit 26.8, eosinophils 14.5% BUN 19, creatinine 1.1. Glucose 109. Lactic acid 1.2. Stable LFT. Troponin negative. pro BNP 214. Chest x-ray demonstrated no acute process . Patient was placed on supplemental oxygen , received loading dose of Solu- Medrol , nebulizing treatment with bronchodilator and admitted for further management. CONSULTANTS: pulmonary Dr. Weinstein ID specialist Dr. Ramos [facility] COURSE: Patient admitted to telemetry floor. Supplemental oxygen provided and titrated to keep pulse oximetry above 92%. Patient started on the nebulizing treatment with bronchodilator and empiric antibiotics. Symbicort and Zyrtec continued. Patient was able to be weaned from oxygen via nasal cannula to room air. At the time of this dictation blood culture negative. Blood pressure was managed with current regimen and stabilized. Prior to discharge blood pressure 127/70. Per analytics developer , patient was clear for discharge home. Due to rapid and unexpected improvement in patient condition , patient was discharged in 1 day. FINAL DIAGNOSES: COPD exacerbation Asthma attack Hypertension DISCHARGE MEDICATIONS: See Medication Reconciliation list. DISCHARGE INSTRUCTIONS: Patient was discharged home Patient to follow-up with a primary care provider in 1 to 2 weeks. I have been assigned to dictate discharge summary for this account. I was not involved in the patient's management. Sheree Nam NP July 28, 2019 14:40
== END 2019-07-27 13:30 | disposition home or self-care (01) | DRG 192 ==
LOC: EMR 23:09 → 2E 23:50 → EDBEDREQ 07-27 00:07
DX: J44.1 Chronic obstructive pulmonary disease with (acute) exacerbation (principal); Z88.6 Allergy status to analgesic agent; R73.9 Hyperglycemia, unspecified; I10 Essential (primary) hypertension; E78.00 Pure hypercholesterolemia, unspecified
CPT/HCPCS: 36415; 71045; 80048; 80053; 81003; 82550; 82553; 83605; 83690; 83880; 84484; 85007; 85025; 87040; 87635; 93005; 96374; 99291